=== PATIENT | male | born 1960 | race Caucasian/White ===

== ENCOUNTER → 2016-10-10 | Outpatient (CLI) | payer OTHER, SELFPAY ==
[~2016-10-10] MED LIST: ASPI325T PO; ENAL10TA2 PO; LOPR1TAB7 PO; LOPR50TA PO; PERCOCET PO; [UNRECOGNIZED DRUG - OTHER] PO; enalapril; norco; norvasc
--- NOTE | 2016-10-10 15:33 | REP ---
HISTORY: Disc degeneration. COMPARISON: None. There is mild loss of disc space height and disc hydrational signal at every level. There is no abnormal signal seen in the imaged portion of the spinal cord. The craniovertebral junction is within normal limits. The marrow signal is within normal limits. The facet joints are well aligned bilaterally. At the C2-3 level, there is no abnormality. There is no disc herniation, foraminal narrowing or central canal stenosis. At the C3-4 level, there is a broad-based annular bulge seen in conjunction with degenerative facet and uncovertebral joint changes bilaterally. There is a posterior spondylotic bar. The factors in concert are causing moderate central canal stenosis with near obliteration of the ventral subarachnoid space and flattening and straightening of the anterior surface of the spinal cord. There is no brenden foraminal narrowing or acute disc extrusion. At the C4-5 level, there is a broad-based annular bulge seen in conjunction with a posterior spondylotic bar along with degenerative facet and uncovertebral joint changes bilaterally. The factors in concert are causing moderate central canal stenosis within a flattening and straightening of the anterior surface of the spinal cord and near obliteration of the ventral subarachnoid space. There is evidence of mild bilateral foraminal narrowing. There is no evidence of an acute disc extrusion. At the C5-6 level, there is a broad-based annular bulge seen in conjunction with a posterior spondylotic bar. Degenerative facet and uncovertebral joint changes are present at this level bilaterally and all factors in concert are causing moderate central canal stenosis with near obliteration of the ventral subarachnoid space. Mild left foraminal narrowing is also suspected. There is no evidence of an acute disc extrusion. At the C6-7 level, there is a mild broad-based annular bulge seen in conjunction with degenerative facet and uncovertebral joint changes bilaterally which are mild to moderate and left greater than right. The chronic changes are causing mild left foraminal narrowing. There is no central canal stenosis or disc extrusion. At the C7-T1 level, there is no abnormality. IMPRESSION: Multilevel discogenic changes and spondylosis as described above. Signed by Zak Barker DO 10/10/2016 04:03 P
== END ==
LOC: M RAD 12:32
PROVIDERS: ATTEND Physician Assistant
DX: M50.30 Other cervical disc degeneration, unspecified cervical region (principal)

== ENCOUNTER → 2016-10-26 | Outpatient (REF) | payer OTHER ==
[2016-10-26 11:50] LABS: MEAN CORPUSCULAR HGB CONC 35.7 g/dl (32.0-36.5); MEAN CORPUSCULAR VOLUME 89.6 fl (80.0-96.0); RED CELL DISTRIBUTION WIDTH 11.5 % (11.5-14.5); WHITE BLOOD COUNT 6.5 K/mm3 (4.0-10.0)
[2016-10-26 12:28] LABS: ALBUMIN 4.1 GM/DL (3.2-5.2); ALBUMIN/GLOBULIN RATIO 1.32 (1.00-1.93); ALKALINE PHOSPHATASE 80 U/L (45-117); ALT/SGPT 33 U/L (12-78); ANION GAP 7 MEQ/L (8-16); AST/SGOT 16 U/L (15-37); BILIRUBIN,TOTAL 0.7 MG/DL (0.2-1.0); BLOOD UREA NITROGEN 3 MG/DL (7-18); CALCIUM LEVEL 9.4 MG/DL (8.5-10.1); CARBON DIOXIDE LEVEL 29 MEQ/L (21-32); CHLORIDE LEVEL 98 MEQ/L (98-107); CHOLESTEROL LEVEL 229 MG/DL (<200); CREATININE FOR GFR 0.68 MG/DL (0.70-1.30); GLOMERULAR FILTRATION RATE > 60.0 (>56); GLUCOSE, FASTING 94 MG/DL (70-105); POTASSIUM SERUM 4.5 MEQ/L (3.5-5.1); SODIUM LEVEL 134 MEQ/L (136-145); TOTAL PROTEIN 7.2 GM/DL (6.4-8.2); TRIGLYCERIDES LEVEL 175 MG/DL (<150)
== END ==
LOC: M SFHCCLAY 06:46
PROVIDERS: ATTEND Nurse Practitioner Family
DX: K21.9 Gastro-esophageal reflux disease without esophagitis (principal); I10 Essential (primary) hypertension; E78.4 Other hyperlipidemia; Z11.59 Encounter for screening for other viral diseases

== ENCOUNTER → 2016-10-31 | Outpatient (REF) | payer OTHER ==
[2016-10-31 12:46] LABS: RETIC HEMOGLOBIN CONTENT CHr 34.8 PG (24-36); RETICULOCYTE % 2.5 % (0.5-1.5)
[2016-10-31 13:44] LABS: FOLATE 9.6 NG/ML (>5.4)
[2016-10-31 14:29] LABS: PERCENT SATURATION 19.4 % (19.7-37.4)
== END ==
LOC: M SFHCCLAY 07:09
PROVIDERS: ATTEND Nurse Practitioner Family
DX: K21.9 Gastro-esophageal reflux disease without esophagitis (principal)

== ENCOUNTER 2017-03-07 10:00 | Outpatient (RCR) | payer MEDICAID | END 2017-03-22 | LOC: M OUTALCOH 10:00 | PROVIDERS: ATTEND Psychiatry & Neurology Psychiatry | DX: F10.10 Alcohol abuse, uncomplicated (principal) ==

== ENCOUNTER → 2017-03-13 | Outpatient (REF) | payer OTHER ==
[2017-03-13 13:25] LABS: MEAN CORPUSCULAR HEMOGLOBIN 30.9 pg (27.0-33.0); MEAN CORPUSCULAR HGB CONC 33.4 g/dl (32.0-36.5); MEAN CORPUSCULAR VOLUME 92.6 fl (80.0-96.0); PLATELET COUNT, AUTOMATED 272 10^3/uL (150-450); RED CELL DISTRIBUTION WIDTH 12.2 % (11.5-14.5); WHITE BLOOD COUNT 10.4 10^3/uL (4.0-10.0)
[2017-03-13 13:45] LABS: PERCENT SATURATION 16.1 % (19.7-50.0)
== END ==
LOC: M SFHCCLAY 07:20
PROVIDERS: ATTEND Nurse Practitioner Family
DX: K21.9 Gastro-esophageal reflux disease without esophagitis (principal); E78.4 Other hyperlipidemia; D64.9 Anemia, unspecified

== ENCOUNTER → 2017-06-15 | Outpatient (CLI) | payer MEDICAID | LOC: M OUTALCOH 09:48 | DX: F10.10 Alcohol abuse, uncomplicated (principal) ==

== ENCOUNTER → 2017-06-27 | Outpatient (REF) | payer OTHER | LOC: M SFHCCLAY 07:51 | DX: K21.9 Gastro-esophageal reflux disease without esophagitis (principal); E78.4 Other hyperlipidemia; D64.9 Anemia, unspecified ==

== ENCOUNTER → 2017-06-28 | Outpatient (REF) | payer OTHER ==
[2017-06-28 11:00] LABS: HEMATOCRIT 38.6 % (42.0-52.0); MEAN CORPUSCULAR HGB CONC 33.7 g/dl (32.0-36.5); MEAN CORPUSCULAR VOLUME 88.9 fl (80.0-96.0); PLATELET COUNT, AUTOMATED 244 10^3/uL (150-450); RED BLOOD COUNT 4.34 10^6/uL (4.30-6.10); RED CELL DISTRIBUTION WIDTH 11.9 % (11.5-14.5); RETIC HEMOGLOBIN EQUIVALENT 34.8 pg (24-36); RETICULOCYTE # 43.8 10^9/L (17-77); WHITE BLOOD COUNT 5.3 10^3/uL (4.0-10.0)
[2017-06-28 11:35] LABS: TOTAL 25(OH) VITAMIN D 31.1 NG/ML (30.0-100.0)
[2017-06-28 11:36] LABS: FOLATE 14.9 NG/ML (>5.4); VITAMIN B12 LEVEL 584 PG/ML (247-911)
[2017-06-28 11:41] LABS: CHOLESTEROL LEVEL 229 MG/DL (<200); CHOLESTEROL RISK RATIO 4.017 (<5); FERRITIN 203 NG/ML (26-388); HDL CHOLESTEROL 57 MG/DL (>40); IRON (FE) 80 UG/DL (65-175); LDL CHOLESTEROL 157.4 MG/DL (<100); NON-HDL-C 172 MG/DL; PERCENT SATURATION 25.1 % (19.7-50.0); TOTAL IRON BINDING CAPACITY 319 UG/DL (250-450); TRIGLYCERIDES LEVEL 73 MG/DL (<150)
== END ==
LOC: M SFHCCLAY 06:59
DX: K21.9 Gastro-esophageal reflux disease without esophagitis (principal); E78.4 Other hyperlipidemia; D64.9 Anemia, unspecified
CPT/HCPCS: 82746

== ENCOUNTER → 2018-03-28 | Outpatient (REF) | payer OTHER, MEDICAID ==
[2018-03-28 11:52] LABS: HEMATOCRIT 39.6 % (42.0-52.0); HEMOGLOBIN 13.8 g/dl (13.5-17.5); MEAN CORPUSCULAR HEMOGLOBIN 32.7 pg (27.0-33.0); MEAN CORPUSCULAR HGB CONC 34.8 g/dl (32.0-36.5); MEAN CORPUSCULAR VOLUME 93.8 fl (80.0-96.0); PLATELET COUNT, AUTOMATED 297 10^3/uL (150-450); RED BLOOD COUNT 4.22 10^6/uL (4.30-6.10); RED CELL DISTRIBUTION WIDTH 12.3 % (11.5-14.5); RETIC HEMOGLOBIN EQUIVALENT 35.9 pg (24-36); RETICULOCYTE # 62.5 10^9/L (17-77); RETICULOCYTE % 1.5 % (0.5-1.5); WHITE BLOOD COUNT 7.4 10^3/uL (4.0-10.0)
[2018-03-28 12:04] LABS: ALBUMIN 4.4 GM/DL (3.2-5.2); ALBUMIN/GLOBULIN RATIO 1.47 (1.00-1.93); ALKALINE PHOSPHATASE 82 U/L (45-117); ALT/SGPT 39 U/L (12-78); ANION GAP 9 MEQ/L (8-16); AST/SGOT 32 U/L (7-37); BILIRUBIN,TOTAL 0.4 MG/DL (0.2-1.0); BLOOD UREA NITROGEN 10 MG/DL (7-18); CALCIUM LEVEL 9.1 MG/DL (8.5-10.1); CARBON DIOXIDE LEVEL 28 MEQ/L (21-32); CHLORIDE LEVEL 96 MEQ/L (98-107); CHOLESTEROL LEVEL 241 MG/DL (<200); CHOLESTEROL RISK RATIO 2.869 (<5); CREATININE FOR GFR 0.77 MG/DL (0.70-1.30); FERRITIN 320 NG/ML (26-388); GLOMERULAR FILTRATION RATE > 60.0 (>56); GLUCOSE, FASTING 88 MG/DL (70-100); HDL CHOLESTEROL 84 MG/DL (>40); IRON (FE) 110 UG/DL (65-175); LDL CHOLESTEROL 129 MG/DL (<100); NON-HDL-C 157 MG/DL; PERCENT SATURATION 32.4 % (19.7-50.0); POTASSIUM SERUM 4.3 MEQ/L (3.5-5.1); SODIUM LEVEL 133 MEQ/L (136-145); TOTAL IRON BINDING CAPACITY 340 UG/DL (250-450); TOTAL PROTEIN 7.4 GM/DL (6.4-8.2); TRIGLYCERIDES LEVEL 142 MG/DL (<150)
[2018-03-28 12:09] LABS: FOLATE 15.3 NG/ML (>5.4); VITAMIN B12 LEVEL 692 PG/ML (247-911)
== END ==
LOC: M SFHCCLAY 08:41
DX: K21.9 Gastro-esophageal reflux disease without esophagitis (principal); I10 Essential (primary) hypertension; E78.49 Other hyperlipidemia
CPT/HCPCS: 82746

== ENCOUNTER → 2018-09-20 | Outpatient (REF) | payer MEDICAID ==
[2018-09-20 11:36] LABS: CHOLESTEROL RISK RATIO 2.61 (<5)
== END ==
LOC: M SFHCCLAY 07:07
PROVIDERS: ATTEND Nurse Practitioner Family
DX: E78.49 Other hyperlipidemia (principal)

== ENCOUNTER 2019-07-14 06:30 | Emergency (ER) | payer MEDICAID, OTHER, SELFPAY ==
[~2019-07-14] VITALS: Ht 182.9 cm; Wt 75.0 kg
[2019-07-14] MEDS ORDERED: OXYC-517 (06:47)
[2019-07-14] MEDS ORDERED: NS 1,000 ML IV ONE (07:15)
[2019-07-14 07:32] LABS: BASO # 0.1 10^3/uL (0.0-0.2); EOS # 0.1 10^3/uL (0.0-0.5); HEMOGLOBIN 13.2 g/dl (13.5-17.5); MEAN CORPUSCULAR HEMOGLOBIN 32.4 pg (27.0-33.0); MEAN CORPUSCULAR HGB CONC 33.8 g/dl (32.0-36.5); MEAN CORPUSCULAR VOLUME 95.6 fl (80.0-96.0); MONO % 14.6 % (0.0-5.0); NEUTROPHILS # 3.8 10^3/uL (1.5-8.5); NEUTROPHILS % 53.7 % (36.0-66.0); PLATELET COUNT, AUTOMATED 307 10^3/uL (150-450); RED BLOOD COUNT 4.08 10^6/uL (4.30-6.10)
[2019-07-14 07:58] LABS: ALBUMIN 3.8 GM/DL (3.2-5.2); BILIRUBIN,DIRECT 0.2 MG/DL (0.0-0.2); BILIRUBIN,TOTAL 0.6 MG/DL (0.2-1.0)
[2019-07-14] MEDS ORDERED: PANTOPRAZOLE 40MG INJ (PROTONIX) (C9113) IV ONE (08:00)
[2019-07-14] MEDS ORDERED: ISOVUE-370 76% 100ML VIAL (Q9967) As Ordered ONE (08:07)
--- NOTE | 2019-07-14 08:36 | REP ---
Clinical: Acute right-sided abdominal pain with nausea and vomiting. Technique: Axial contrast enhanced images from the lung bases to the pubic symphysis using 100 ml Isovue 370 intravenous contrast material coronal and sagittal re-formations. Comparison: 04/23/2013. Findings: Lung bases are clear. Visualized heart and pericardium normal. Liver, spleen, pancreas, gallbladder, bilateral adrenal glands are normal. The right kidney is essentially normal and demonstrates minimal cortical scarring and small subcentimeter cyst. Evidence of prior left nephrectomy noted. The enteric system is without obstruction or acute inflammatory process. Pelvis demonstrates normal bladder and age appropriate prostate/seminal vesicles. No ascites. No free air. No adenopathy. Atherosclerotic changes to the aorta and vasculature without aneurysm or dissection. Musculoskeletal structures demonstrate age-related degenerative changes without focal acute abnormality. Impression: 1. No acute abdominopelvic pathology appreciated. Electronically Signed by Juan Aguirre MD 07/14/2019 08:27 A
[2019-07-14] MEDS ORDERED: SUCRALFATE SUSP 1GM/10ML UD PO ONE (08:45)
[2019-07-14] MEDS ORDERED: CARA1TAB6 PO (09:04)
[2019-07-14] MEDS ORDERED: PANT40TA3 PO (09:04)
[2019-07-14 09:13] VITALS: BP 144/100
[2019-07-14] MEDS ORDERED: ONDA4TAB6 PO (10:58)
== END 2019-07-14 09:18 | disposition home or self-care (01) ==
LOC: M ED 06:30
DX: K29.00 Acute gastritis without bleeding (principal); I10 Essential (primary) hypertension; Z79.899 Other long term (current) drug therapy
CPT/HCPCS: 36415; 74177; 80047; 80076; 82150; 83690; 85025; 96360; 99284; Q9967

== ENCOUNTER → 2019-08-07 | Outpatient (CLI) | payer OTHER ==
[~2019-08-07] MED LIST changes: +CARA1TAB6 PO; +ONDA4TAB6 PO; +OXYC-517; +PANT40TA3 PO
--- NOTE | 2019-08-07 11:55 | REP ---
HIDA SCAN: Following the intravenous administration of 6.6 millicuries technetium 99m mebrofenin, multiple images of the right upper quadrant are performed every 5 minutes for a period of 1 hour. Biliary to bowel transit is seen at 35 minutes post injection. The gallbladder is not visualized until 60 minutes post injection. During the exam, the patient informed the technologist that he took oxycodone at 5 a.m. which would interfere with calculation of a gallbladder ejection fraction. Therefore, the gallbladder ejection fraction is not performed today. 3-hour delayed images are performed showing adequate filling of the gallbladder and no evidence of cholecystitis. We will be happy to reschedule the patient for appropriate imaging and gallbladder ejection fraction calculation, at which time the patient should refrain from taking oxycodone. Electronically Signed by Alban Degroot MD 08/07/2019 02:33 P
== END ==
LOC: M RAD 07:27
PROVIDERS: ATTEND Nurse Practitioner Family
DX: R10.11 Right upper quadrant pain (principal)
CPT/HCPCS: 78227; A9537

== ENCOUNTER 2019-09-13 18:29 | Observation (INO) | payer MEDICAID, OTHER ==
[~2019-09-13] VITALS: Ht 182.9 cm; Wt 71.4 kg
[~2019-09-13 18:29] MED LIST changes: -OXYC-517; +OXYC-517 PO
[2019-09-13 19:21] LABS: BASO % 0.3 % (0.0-1.0); LYMPH # 0.7 10^3/uL (1.5-5.0); LYMPH % 7.5 % (24.0-44.0); MEAN CORPUSCULAR HEMOGLOBIN 32.9 pg (27.0-33.0); MEAN CORPUSCULAR HGB CONC 35.6 g/dl (32.0-36.5); MEAN CORPUSCULAR VOLUME 92.4 fl (80.0-96.0); MONO # 0.4 10^3/uL (0.0-0.8); MONO % 4.8 % (0.0-5.0); NEUTROPHILS # 7.9 10^3/uL (1.5-8.5); NEUTROPHILS % 86.8 % (36.0-66.0); PLATELET COUNT, AUTOMATED 294 10^3/uL (150-450); RED BLOOD COUNT 4.87 10^6/uL (4.30-6.10); WHITE BLOOD COUNT 9.1 10^3/uL (4.0-10.0)
[2019-09-13] MEDS ORDERED: NS 1,000 ML IV ONE (19:30)
[2019-09-13] MEDS ORDERED: ONDANSETRON 4MG/2ML VIAL IV ONE (19:30)
[2019-09-13] MEDS ORDERED: MORPHINE 2 MG/ML 1ML VIAL (J2270) IV PRN (19:30)
[2019-09-13 19:37] LABS: ALBUMIN 4.9 GM/DL (3.2-5.2); BILIRUBIN,DIRECT 0.4 MG/DL (0.0-0.2); BILIRUBIN,TOTAL 1.1 MG/DL (0.2-1.0); TOTAL PROTEIN 8.7 GM/DL (6.4-8.2)
[2019-09-13 19:41] LABS: INR 0.99; PARTIAL THROMBOPLASTIN TIME 26.8 SECONDS (25.0-38.4); PROTHROMBIN TIME 12.8 SECONDS (11.8-14.0)
[2019-09-13] MEDS: HYDROMORPHONE HCL 0.5 MG/ 0.5 ML SYRINGE (J1170 PER 1) IV PRN ×2 (20:18→20:58)
[2019-09-13] MEDS ORDERED: ISOVUE-370 76% 100ML VIAL As Ordered ONE (20:42)
--- NOTE | 2019-09-13 21:36 | REPVR ---
PROCEDURE INFORMATION: Exam: CT Abdomen And Pelvis With Contrast Exam date and time: 09/13/2019 9:08 PM Age: 58 years old Clinical indication: Ruq abd pain, vomiting, diarrhea TECHNIQUE: Imaging protocol: Computed tomography of the abdomen and pelvis with intravenous contrast. Radiation optimization: All CT scans at this facility use at least one of these dose optimization techniques: automated exposure control; mA and/or kV adjustment per patient size (includes targeted exams where dose is matched to clinical indication); or iterative reconstruction. Contrast material: ISOVUE 370; Contrast volume: 100 ml; Contrast route: IV; COMPARISON: CT ABD/PEL W/IV CONTRAST ONLY 07/14/2019 8:13 AM FINDINGS: Heart: No cardiomegaly or pericardial effusion. Lungs: The imaged portions of the lung bases are clear. The lungs were not fully imaged. Diaphragm: Intact. Liver: The attenuation of the liver is more than 40 Hounsfield units lower in attenuation compared to the spleen, which is compatible with fatty liver infiltration. No liver lesion is seen. The contour of the liver is smooth. No hepatomegaly is noted. Gallbladder and bile ducts: No calcified gallstones are noted. No gallbladder wall thickening, pericholecystic fluid, or pericholecystic inflammatory changes are identified. No dilation of the bile ducts is noted. No calcified stones are seen in the common bile duct. Pancreas: Normal. No dilation of the main pancreatic duct is noted. There is no inflammatory fat stranding around the pancreas to suggest acute pancreatitis. Spleen: Normal. No splenomegaly is noted. Adrenals: Normal. No adrenal mass is noted. Kidneys and ureters: Postoperative changes are noted from a left nephrectomy, and there are surgical clips in the operative bed. There is a 6 mm benign-appearing cyst in the midpole of right kidney that is stable compared to the prior CT abdomen and pelvis on 07/14/2019 and for which follow-up is not necessary. There is right renal cortical scarring. No stones are noted in the right kidney or right ureter. Stomach and bowel: The stomach and small bowel are unremarkable. There is colonic diverticulosis without evidence for diverticulitis. There is no evidence for a bowel obstruction, colitis, pneumatosis intestinalis, intussusception, volvulus, or perforated viscus. Appendix: Normal. There is no evidence for appendicitis. Intraperitoneal space: No free air. There is a trace amount of free fluid in the pelvis. No abscess. Retroperitoneal space: There is a trace amount of fluid in the left retroperitoneal space. No retroperitoneal mass is noted. Vasculature: The abdominal aorta is patent, normal in caliber, and there is no dissection. The iliac arteries, common femoral arteries, right main renal artery, celiac artery, superior mesenteric artery, and inferior mesenteric artery are patent. There are moderate atherosclerotic calcifications. The portal veins, splenic vein, superior mesenteric vein, inferior mesenteric vein, and right renal vein are patent. Lymph nodes: No enlarged lymph nodes. Bladder: The partially distended urinary bladder is unremarkable. No stones or masses are seen in the bladder. Reproductive: The prostate gland and seminal vesicles are unremarkable. Bones/joints: There is no fracture or dislocation. No suspicious osteolytic or osteoblastic lesion. There are degenerative changes involving the lumbar spine. There is mild osteoarthritis of both hip joints. There are bony protruberances in the lateral aspects of the femoral head neck junctions, which increase the anatomic risk for a CAM type femoroacetabular impingement syndrome in both hips. There are degenerative changes of both sacroiliac joints. Soft tissues: There is a small fat containing umbilical hernia, which is similar in appearance compared to the prior CT on 07/14/2019. IMPRESSION: 1. No acute findings in the abdomen or pelvis. 2. Fatty liver. 3. Small fat containing umbilical hernia, which is similar in appearance compared to the prior CT on 07/14/2019. 4. Colonic diverticulosis without evidence for diverticulitis. 5. Trace amount of free fluid in the pelvis and left retroperitoneal space. Electronically signed by: Ac Saenz On 09/13/2019 21:36:44 PM
[2019-09-13] MEDS ORDERED: PANTOPRAZOLE 40MG VIAL (C9113 PER 1) IV ONE (22:45)
[2019-09-13] MEDS ORDERED: ENAL20TA PO (22:53)
[2019-09-13] MEDS ORDERED: OMEP-221 PO (22:53)
--- NOTE | 2019-09-13 23:13 | HPEPDOC ---
[facility] Medical History & Physical Date of Admission September 13, 2019 Date of Service: September 13, 2019 Primary Care Physician: Sydnie Castro Attending Physician: Abbie Bustos MD History and Physical CHIEF COMPLAINT: abdominal pain, vomiting HISTORY OF PRESENT ILLNESS: Patient is a 58 y/o M with PMH of chronic abdominal pain, gastritis, duodenitis hx who presented to [facility] emergency room with the chief complaint of worsening right upper quadrant pain and intractable vomiting for the past 3 days. Patient states that he has always had significant RUQ pain which began 3 months ago. On 09/11/19, he had an episode of severe RUQ pain, he had loss of his bowel, nausea, at times "coffee ground" appearing vomiting >15 x today. Diarrhea is often yellow, bile color but he has had brbpr and at times it is dark colored. Describes pain like "knot" or "stabbing" pain in his right upper quadrant, 10/10 on pain scale, localized , its constant but can intermittently become more severe. Follows closely with Dr. Vega for the pain and was told recently that he would likely need another endoscope and has a scheduled HIDA scan within the next 2 weeks. Associated symptoms include lack of energy, loss of appetite, feeling feverish, headaches. In ER, VS were stable. Patient was given multiple doses of dilaudid for severe pain. BP was uncontrolled in 170's systolic. He would have diaphoresis with each pain attack in the RUQ. CT abdomen showed: no acute findings in the abdomen or pelvis, fatty liver, small fat containing umbilical hernia similar in appearance compared to the prior CT on 07/14/2019, colonic diverticulosis without evidence for diverticulitis, trace amount of free fluid in the pelvis and left retroperitoneal space. When looked into old records, Endoscopy from 2014 did not show any concerning findings. Patient continued to have vomiting, requiring zofr an. Patient was admitted for continued workup/treament of RUQ pain, intractable vomiting. REVIEW OF SYSTEMS: CONSTITUTIONAL: Denies unexplained weight gain, night sweats EYES: Denies eye drainage, eye pain, visual changes, dry/irritated eye EARS, NOSE, MOUTH, THROAT: Denies difficulty hearing, ringing in ears, mouth sores, loose teeth, sore throat, facial numbness or pain NECK: Denies swollen glands CARDIOVASCULAR: Denies irregular heartbeat, racing heart, chest pains, swelling of feet or legs, pain in legs with walking RESPIRATORY: Denies shortness of breath, night sweats, wheezing, sputum production, oxygen at home, cough lasting > 1 month GASTROINTESTINAL: Denies constipation, heartburn, nausea GENITOURINARY: Denies painful urination, bloody urine, frequent urination, urgency, leaking urine, impotence MUSCULOSKELETAL: Denies joint pain, muscle pain, leg swelling INTEGUMENTARY: Denies rash, itching, new skin lesion, change in existing skin lesion, hair loss or increase, breast changes. NEUROLOGICAL: Denies dizziness, difficulty walking, numbness or tingling PSYCHIATRIC: Denies depression, anxiety, recurrent bad thoughts, mood swings, hallucinations PAST MEDICAL HISTORY: 1. HTN 2. GERD 3. Duodenitis 4. Gastritis 5. Arthritis 6. 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 Single kidney 8. Chronic pain 2/2 to entrapment syndrome and advanced arthritis PAST SURGICAL HISTORY: 1. Endoscopy 2013 2. 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 Colonoscopy 2013 5. Herniated/strangulation repair as child FAMILY HISTORY: Father: colon cancer. at 81 y/o Mother: stroke. at 81 y/o. Siblings: sister #1: GI problems. Alive, sister #2: stroke, GI problems. Alive SOCIAL HISTORY: Denies smoking and drug use. Occasional alcohol use. Lives in local area, he is currently employed in construction. GI-Dr. Vega, PCP-Sydnie Castro. Full Code. ALLERGIES: Please see below. HOME MEDICATIONS: Please see below. PHYSICAL EXAMINATION: CONSTITUTIONAL: Appears very uncomfortable, AAO x 3 EYES: PERRLA, EOM intact, corrective lenses in place HENT, MOUTH: Normocephalic, atraumatic, moist mucous membranes, NECK: SUPPLE, no JVD, no lymphadenopathy, no carotid bruit CV: Regular rate and rhythm, S1S2 normal, no murmurs/rubs/gallops RESPIRATORY: Clear to auscultation bilaterally, no rales/rhonchi/wheezes GI: Multiple well healed scars on left upper and lower quadrants. BS positive in 4 quadrants, soft, very tender to touch in the RUQ and LLQ. + guarding of these areas. Nondistended, no rebound no organomegaly : Deferred MUSCULOSKELETAL: Normal ROM. No cyanosis, clubbing, swelling, joint deformity, extremity edema INTEGUMENTARY: Intact, no rashes, no lesions, no erythema NEUROLOGIC: Cranial Nerves II-XII are intact, no focal deficits PSYCHIATRIC: Mood and affect are normal LABORATORY DATA: Please see below IMAGING: CT abd/pelvis: 1. No acute findings in the abdomen or pelvis. 2. Fatty liver. 3. Small fat containing umbilical hernia, which is similar in appearance compared to the prior CT on 07/14/2019. 4. Colonic diverticulosis without evidence for diverticulitis. 5. Trace amount of free fluid in the pelvis and left retroperitoneal space. ASSESSMENT: 58 y/o M admitted for continued treatment/workup of severe abdominal pain, intractable pain. PLAN: 1. Right upper quadrant pain, r/o gallbladder source vs. possibly ulcer? CT with contrast of abd/pelvis above. T bili, D bili and AST only very minimally elevated. HIDA scans are not done on the weekend otherwise would suggest this first- although on high doses of narcotics, would maybe not be able to done anyway. Consider surgical consult for scope to r/o ulcer if pain still present in the AM. Pain control with home PO oxycodone and morphine IV for severe pain, IVFs at 100 cc/hr. F/u CMP in AM. 2. Hematemesis/brbpr at home. ? GI bleed. If ulcer, as mentioned above, could be intermittently bleeding. No witnessed bleeding here, H/H stable, guaiac neg in ER. Clear liquid diet, f/u CBC in AM. Protonix IV. 3. Intractable vomiting likely 2/2 to problem #1. Zofran PRN. 4. Chronic pain 2/2 to entrapment syndrome and advanced arthritis. C/w home oxycodone. 5. HTN. C/w home meds. 6. GERD. PPI. 7. Solitary kidney. Cr wnl. On IVFs. 8. DVT px. SCDs, TEDs DISPOSITION: Admitted under observation status. Plan is discharge home when medically improved. Vital Signs Vital Signs Date Time Temp Pulse Resp B/P (MAP) Pulse Ox O2 Delivery O2 Flow Rate FiO2 09/13/19 22:45 81 156/99 (118) 97 Room Air 09/13/19 20:58 18 09/13/19 18:30 99.0 Laboratory Data Labs 24H Laboratory Tests 2 09/13/19 19:01: Prothrombin Time 12.8, Prothromb Time International Ratio 0.99, Activated Partial Thromboplast Time 26.8 09/13/19 19:02: Immature Granulocyte % (Auto) 0.6, Neutrophils (%) (Auto) 86.8H, Lymphocytes (%) (Auto) 7.5L, Monocytes (%) (Auto) 4.8, Eosinophils (%) (Auto) 0.0, Basophils (%) (Auto) 0.3, Neutrophils # (Auto) 7.9, Lymphocytes # (Auto) 0.7L, Monocytes # (Auto) 0.4, Eosinophils # (Auto) 0.0, Basophils # (Auto) 0.0, Nucleated Red Blood Cells % (auto) 0.0, Total Bilirubin 1.1H, Direct Bilirubin 0.4H, Aspartate Amino Transf (AST/SGOT) 68H, Alanine Aminotransferase (ALT/SGPT) 51, Alkaline Phosphatase 131H, Total Protein 8.7H, Albumin 4.9, Albumin/Globulin Ratio 1.3, Lipase 220 09/13/19 19:03: POC Glucose (Misc Panel) 118H, POC Sodium (Misc Panel) 134L, POC Potassium (Misc Panel) 3.6, POC Chloride (Misc Panel) 97L, POC Total CO2 (Misc Panel) 20.0L, POC Blood Urea Nitrogen (Misc Panel 3L, POC Ionized Calcium (Misc Panel) 4.5, POC Creatinine (Misc Panel) 0.8, POC Hematocrit (Misc Panel) 49.0 09/13/19 20:11: Lactic Acid Level 1.9 CBC/BMP Laboratory Tests 09/13/19 19:02 Home Medications Scheduled Enalapril Maleate (Enalapril Maleate) 20 Mg Tablet, 20 MG PO BID Metoprolol Tartrate (Lopressor) 100 Mg Tab, 100 MG PO TID Omeprazole (Omeprazole) 40 Mg Capsule.dr, 40 MG PO DAILY Scheduled PRN Oxycodone HCl (Oxycodone HCl) 5 Mg Tablet, 5 MG PO Q4-6HP PRN for PAIN Allergies Coded Allergies: No Known Drug Allergies (Verified Allergy, Unknown, 07/14/19) A-FIB/CHADSVASC A-FIB History Current/History of A-Fib/PAF?: No Current PO Anticoag Therapy: No (possible bleed) Age/Risk Factor Scoring CHADSVASC: CHADSVASC Response (Comments) Value Age Risk Factor Age < 65 years old 0 Gender Risk Factor Male 0 Hx of CHF No 0 Hx of HTN Yes 1 Hx of Stroke/TIA/or VTE No 0 Hx of Diabetes No 0 Hx of Vascular Disease No 0 Total 1 Treatment Treatment ordered: NONE Reason Anticoagulant not given: Current bleeding, Other (possible bleeding ) Other reason anticoagulant not: questionalb GI bleed Abbie Bustos MD September 13, 2019 23:13
[2019-09-13] MEDS ORDERED: ONDANSETRON 4MG/2ML VIAL IV PRN (23:15)
[2019-09-14] MEDS ORDERED: MORPHINE 2 MG/ML 1ML VIAL (J2270) IV PRN
[2019-09-14 01:02] VITALS: BP 160/100
[2019-09-14] MEDS: ENALAPRIL MALEATE 10 MG TAB PO SCH ×3 (01:42→21:06)
[2019-09-14] MEDS: METOPROLOL TARTRATE 100 MG TAB PO SCH ×4 (01:43→21:07)
[2019-09-14] MEDS: oxyCODONE 5MG TAB PO PRN ×4 (02:13→21:07)
[2019-09-14 03:15] VITALS: BP 152/88
[2019-09-14] MEDS ORDERED: MORPHINE 2 MG/ML 1ML VIAL (J2270) IV ONE (03:30)
[2019-09-14] MEDS: NS 1,000 ML IV SCH ×2 (03:50→16:49)
[2019-09-14 06:00] VITALS: BP 170/98
--- NOTE | 2019-09-14 08:11 | ECGEPIP ---
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
[2019-09-14] MEDS ORDERED: HYDROMORPHONE HCL 0.5 MG/ 0.5 ML SYRINGE (J1170 PER 1) IV PRN (08:45)
[2019-09-14] MEDS ORDERED: OMEPRAZOLE 20 MG CAP PO SCH (09:00)
[2019-09-14] MEDS: GABAPENTIN 100 MG CAP PO SCH ×3 (10:20→21:06)
[2019-09-14] MEDS: ONDANSETRON 4MG/2ML VIAL IV SCH ×3 (10:21→21:07)
[2019-09-14] MEDS: KETOROLAC 30 MG/ML 1ML VIAL IV SCH ×3 (10:21→21:05)
[2019-09-14] MEDS: HYDROMORPHONE HCL 0.5 MG/ 0.5 ML SYRINGE (J1170 PER 1) IV PRN ×4 (10:22→22:20)
--- NOTE | 2019-09-14 11:19 | IPNPDOC ---
Text Note Date of Service The patient was seen on 09/14/19. NOTE SUBJECTIVE: Complains of pain right under the edge of the rib in the right upper quadrant. Bp uncontrolled form the pain. Still having dry heaves, no bowel movement. No fever or chills. PHYSICAL EXAMINATION: VITALS ; below CONSTITUTIONAL: Appears very uncomfortable, AAO x 3 EYES: PERRLA, EOM intact, corrective lenses in place HENT, MOUTH: Normocephalic, atraumatic, moist mucous membranes, NECK: SUPPLE, no JVD, no lymphadenopathy, no carotid bruit CV: Regular rate and rhythm, S1S2 normal, no murmurs/rubs/gallops RESPIRATORY: Clear to auscultation bilaterally, no rales/rhonchi/wheezes GI: Multiple well healed scars on left upper and lower quadrants. BS positive in 4 quadrants, soft, tender in the RUQ , Nondistended, no rebound no organomegaly MUSCULOSKELETAL: Normal ROM. No cyanosis, clubbing, swelling, joint deformity, extremity edema INTEGUMENTARY: Intact, no rashes, no lesions, no erythema NEUROLOGIC: Cranial Nerves II-XII are intact, no focal deficits PSYCHIATRIC: Mood and affect are normal LABORATORY DATA: Reviewed. ASSESSMENT AND PLAN: Patient is a 58 y/o M with PMH of HTN, OA of the cervical region and hips, chronic abdominal pain in the left lumber region from nerve entrapment syndrome on chronic narcotics, gastritis, duodenitis, present with right upper quadrant abdominal pain, gastritis, duodenitis hx who presented to [facility] emergency room with the chief complaint of worsening right upper quadrant pain for the past 3 months became intractable 3 days ago with and intractable vomiting and dry heaves for the past 3 days. He has been unable to keep any food or liquid down. has been able to keep his oral narcotics down also. He was admitted for evaluation of abdominal pain and hypertensive urgency. Abdominal pain RUQ and vomiting CT abdomen no acute issues. Gastritis/duodenitis/GB issues/ musculoskelotal. will get GB US Had HIDA scan on 08/06 incomplete as he was taking narcotics. will give toradol, dilaudid, zofran Surgical consult. continue pantoprazole. Hematemesis/brbpr at home. ? hemorrhoidal/ acute gastritis/duodenitis No bowel movements here, no bleeding here hh stable continue Pantoprazole. Chronic pain 2/2 to entrapment syndrome and advanced arthritis. C/w home oxycodone. Hypertensive urgency due to pain C/w home meds. GERD. PPI. Solitary kidney. due to left nephrectomy. DVT px. SCDs, TEDs VS,Fishbone, I+O VS, Fishbone, I+O Laboratory Tests 09/13/19 19:02 Vital Signs Date Time Temp Pulse Resp B/P (MAP) Pulse Ox O2 Delivery O2 Flow Rate FiO2 09/14/19 10:22 18 09/14/19 08:39 87 204/134 09/14/19 06:00 99.1 96 Room Air I&O- Last 24 Hours up to 6 AM 09/14/19 06:00 Intake Total 1460 ml Balance 1460 ml STEPHANIE GALVAN MD September 14, 2019 11:19
[2019-09-14 14:00] VITALS: BP 160/110
[2019-09-14] MEDS: SUCRALFATE SUSP 1GM/10ML UD PO SCH ×2 (17:10→21:04)
[2019-09-14] MEDS: PANTOPRAZOLE 40MG VIAL (C9113 PER 1) IV SCH (17:10)
[2019-09-14] MEDS ORDERED: traZODone 25MG PER 1/2 TABLET PO PRN (18:30)
[2019-09-14] MEDS: D5W/0.9% SODIUM CHLORIDE 1,000 ML IV SCH (18:39)
[2019-09-14] MEDS ORDERED: PANTOPRAZOLE 40MG VIAL (C9113 PER 1) IV SCH (21:00)
[2019-09-14 22:00] VITALS: BP 164/52
[2019-09-15] MEDS: ONDANSETRON 4MG/2ML VIAL IV SCH ×3 (03:32→15:00)
[2019-09-15] MEDS: KETOROLAC 30 MG/ML 1ML VIAL IV SCH ×3 (03:32→15:00)
[2019-09-15] MEDS: HYDROMORPHONE HCL 0.5 MG/ 0.5 ML SYRINGE (J1170 PER 1) IV PRN ×2 (03:35→06:39)
[2019-09-15] MEDS: D5W/0.9% SODIUM CHLORIDE 1,000 ML IV SCH ×2 (03:35→14:30)
[2019-09-15 06:00] VITALS: BP 168/90
[2019-09-15] MEDS: PANTOPRAZOLE 40MG VIAL (C9113 PER 1) IV SCH (06:02)
[2019-09-15] MEDS: oxyCODONE 5MG TAB PO PRN ×2 (06:02→10:08)
[2019-09-15] MEDS: ENALAPRIL MALEATE 10 MG TAB PO SCH (06:16)
[2019-09-15] MEDS: METOPROLOL TARTRATE 100 MG TAB PO SCH (06:17)
[2019-09-15 06:44] LABS: HEMATOCRIT 38.7 % (42.0-52.0); MEAN CORPUSCULAR HEMOGLOBIN 33.7 pg (27.0-33.0); MEAN CORPUSCULAR HGB CONC 35.4 g/dl (32.0-36.5); MEAN CORPUSCULAR VOLUME 95.1 fl (80.0-96.0); PLATELET COUNT, AUTOMATED 190 10^3/uL (150-450); RED BLOOD COUNT 4.07 10^6/uL (4.30-6.10); WHITE BLOOD COUNT 7.3 10^3/uL (4.0-10.0)
[2019-09-15 06:52] LABS: HEMOGLOBIN 13.7 g/dl (13.5-17.5)
[2019-09-15 07:18] LABS: ALBUMIN 3.5 GM/DL (3.2-5.2); ALT/SGPT 37 U/L (12-78); BILIRUBIN,TOTAL 1.1 MG/DL (0.2-1.0); BLOOD UREA NITROGEN 4 MG/DL (7-18); CALCIUM LEVEL 8.5 MG/DL (8.5-10.1); CARBON DIOXIDE LEVEL 27 MEQ/L (21-32); CHLORIDE LEVEL 102 MEQ/L (98-107); GLOMERULAR FILTRATION RATE > 60.0 (>56); GLUCOSE, FASTING 111 MG/DL (70-100); POTASSIUM SERUM 3.4 MEQ/L (3.5-5.1); SODIUM LEVEL 138 MEQ/L (136-145); TOTAL PROTEIN 6.3 GM/DL (6.4-8.2)
[2019-09-15] MEDS: SUCRALFATE SUSP 1GM/10ML UD PO SCH ×2 (07:30→12:41)
[2019-09-15] MEDS: GABAPENTIN 100 MG CAP PO SCH (09:36)
[2019-09-15] MEDS: **hydrALAZINE HCL** 25 MG TAB PO SCH ×2 (09:37→12:42)
[2019-09-15] MEDS ORDERED: OXYC-517 PO (12:12)
[2019-09-15] MEDS ORDERED: HYDR25TA PO (12:12)
[2019-09-15] MEDS ORDERED: GABA-843 PO (12:12)
[2019-09-15 12:42] VITALS: BP 152/98
--- NOTE | 2019-09-15 13:17 | CR ---
DATE OF CONSULTATION: 09/15/2019 CHIEF COMPLAINT: Abdominal pain. BRIEF HISTORY OF PRESENT ILLNESS: The patient is a 58-year-old male whom I have seen in the past for abdominal pains, and when he has seen me, I have referred him on to the pain clinic for some chronic pain issues as well as felt that the majority of his abdominal pains were not surgical issues. In any case, has sharp, persistent, stabbing pain underneath the rib on the right-hand side that is persistent pain. He thinks that it radiates to his left lower quadrant or at least starts up the pain in his lower quadrant. Pain medications do not seem to make this completely go away. It only dulls it, as well as the other medications he is currently on. He states it is there at all times, does not come or go, does not getting worse with eating, etc. Does not have any history of biliary colic. He has had this chronic abdominal pain, gastritis, duodenitis, diarrhea, issues, irritable bowel-type symptoms that have been followed by gastrointestinal (GI). I do feel that it is reasonable to have GI re-evaluate him at some point as an outpatient, although I do not feel that this right-sided abdominal pain is related to this. In any case, he is in the hospital for pain control. Thus far, his past medical history is significant for history of hypertension, gastroesophageal reflux disease, duodenitis, gastritis, arthritis, nerve entrapment, single kidney, chronic pain, endoscopies, left nephrectomy, sinus surgery, hernia repair. MEDICATIONS: Include the following: Enalapril, metoprolol, omeprazole, and oxycodone. Other medications have been added to his regimen. PHYSICAL EXAMINATION: Patient is an anxious 58-year-old who looks stated age. HEENT is unremarkable. Lungs are clear anteriorly. Heart is regular. Abdomen is soft, nondistended, really not tender, although when I push on his right rib edge and underneath the rib edge, he has some tenderness. This could be easily costochondritis. No true abdominal pain or tenderness is appreciated. Thus far, with his workup he has had a normal white count. His CT scan showed no evidence of right upper quadrant abnormality other than a fatty liver, and his gallbladder ultrasound results are still pending at this time; however, I did not see any evidence of gallbladder wall thickening or gallstones. IMPRESSION AND PLAN: The patient has pain of undetermined etiology. I anticipate it is mostly musculoskeletal, and he has seen the pain clinic in the past. It may be reasonable to be re-evaluated by them for additional recommendations. No surgical intervention is necessary at this time. The question whether a hepatobiliary iminodiacetic acid (HIDA) scan would be helpful to rule out cholecystitis is obvious at this point that there is no evidence of acute cholecystitis, and thus HIDA scan would not be beneficial in this. Obviously, if the patient has some chronic cholecystitis, I feel that the discomfort and pain that he has is very unlikely to be related to a chronic cholecystitis presentation; thus I would recommend addressing the problem that is present, which is a pain control issue. Once he is comfortable enough to be discharged, I would recommend that he be evaluated by pain clinic as an outpatient and followup with them. No surgical followup is necessary at this time.
--- NOTE | 2019-09-15 13:39 | DS.PDOC ---
Discharge Summary General Date of Admission September 13, 2019 at 18:30 Date of Discharge 09/15/19 Discharge Summary PROCEDURES PERFORMED DURING STAY: [None]. DISCHARGE DIAGNOSES: Musculoskeletal pain Vs Nerve entrapment pain Hypertensive urgency GERD OA Left nephrectomy Nerve entrapment at left nephrectomy site with chronic pain. COMPLICATIONS/CHIEF COMPLAINT: Abdominal Pain. 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 He has been unable to keep any food or liquid down. has been able to keep his oral narcotics down also. He was admitted for evaluation of abdominal pain and hypertensive urgency. Abdominal pain RUQ and vomiting and diarrhea No vomiting or diarrhea here. CT abdomen no acute issues. GB us negative No acute cholecystitis. Patient has been scheduled for outpatient HIDA scan which can be completed However i doubt this is pain related to intraabdominal pathology. Probably musculoskeletal vs nerve entrapment Patient has history of multiple rib fractures at the age of 17 years. Diarrhea probably due to narcotic withdrawal as he could not keep his oxycodone down for 2 days due to vomiting. Appreciate surgical consult. Added Gabapentin continue home oxycodone. referral to pain clinic Hematemesis/brbpr at home. probably due to retching and hemorrhoids. No bowel movements here, no bleeding here hh stable continue Pantoprazole. Chronic pain 2/2 to entrapment syndrome and advanced arthritis. C/w home oxycodone. Hypertensive urgency due to pain C/w home meds. add hydralazine. GERD. PPI. Solitary kidney. due to left nephrectomy. DISCHARGE MEDICATIONS: Please see below. ALLERGIES: Please see below. PHYSICAL EXAMINATION ON DISCHARGE: VITAL SIGNS: Please see below. CONSTITUTIONAL: Appears very uncomfortable, AAO x 3 EYES: PERRLA, EOM intact, corrective lenses in place HENT, MOUTH: Normocephalic, atraumatic, moist mucous membranes, NECK: SUPPLE, no JVD, no lymphadenopathy, no carotid bruit CV: Regular rate and rhythm, S1S2 normal, no murmurs/rubs/gallops RESPIRATORY: Clear to auscultation bilaterally, no rales/rhonchi/wheezes GI: Multiple well healed scars on left upper and lower quadrants. BS positive in 4 quadrants, soft, tender in the RUQ , Nondistended, no rebound no organomegaly MUSCULOSKELETAL: Normal ROM. No cyanosis, clubbing, swelling, joint deformity, extremity edema INTEGUMENTARY: Intact, no rashes, no lesions, no erythema NEUROLOGIC: Cranial Nerves II-XII are intact, no focal deficits PSYCHIATRIC: Mood and affect are normal LABORATORY DATA: Please see below. ACTIVITY: [As tolerated]. DIET: as tolerated DISCHARGE PLAN: Home DISPOSITION: . DISCHARGE INSTRUCTIONS: Referral to Pain clinic Follow up with PMD in 1 week DISCHARGE CONDITION: [Stable]. TIME SPENT ON DISCHARGE: 35 minutes. Vital Signs/I&Os Vital Signs Date Time Temp Pulse Resp B/P (MAP) Pulse Ox O2 Delivery O2 Flow Rate FiO2 09/15/19 12:53 14 09/15/19 12:42 152/98 09/15/19 10:38 Room Air 09/15/19 06:17 66 09/15/19 06:00 99.0 98 I&O- Last 24 Hours up to 6 AM 09/15/19 06:00 Intake Total 2615 ml Output Total 350 ml Balance 2265 ml Laboratory Data Labs 24H Laboratory Tests 2 09/15/19 06:28: Nucleated Red Blood Cells % (auto) 0.0, Anion Gap 9, Glomerular Filtration Rate > 60.0, Calcium Level 8.5, Total Bilirubin 1.1H, Aspartate Amino Transf (AST/SGOT) 41H, Alanine Aminotransferase (ALT/SGPT) 37, Alkaline Phosphatase 89, Total Protein 6.3#L, Albumin 3.5#, Albumin/Globulin Ratio 1.3 CBC/BMP Laboratory Tests 09/15/19 06:28 Discharge Medications Scheduled Enalapril Maleate (Enalapril Maleate) 20 Mg Tablet, 20 MG PO BID, (Reported) Gabapentin (Gabapentin) 300 Mg Capsule, 1 CAP PO TID Hydralazine HCl (Hydralazine HCl) 25 Mg Tablet, 1 TAB PO TID Metoprolol Tartrate (Lopressor) 100 Mg Tab, 100 MG PO TID, (Reported) Omeprazole (Omeprazole) 40 Mg Capsule., 40 MG PO DAILY, (Reported) Scheduled PRN Oxycodone HCl (Oxycodone HCl) 5 Mg Tablet, 5 MG PO Q4-6HP PRN for PAIN Allergies Coded Allergies: No Known Drug Allergies (Verified Allergy, Unknown, 07/14/19) STEPHANIE GALVAN MD September 15, 2019 13:39
--- NOTE | 2019-09-16 08:39 | REP ---
Right upper quadrant sonography: History: Upper quadrant pain. Preliminary report is provided at the time of the exam by Dr. Aguirre. Comparison study: Comparison study is from October 05, 2015. [place] CT abdomen study April 21, 2013. The patient status post left nephrectomy. Findings: Scanning through the right upper quadrant of the abdomen demonstrates a normal sized, thin-walled gallbladder without evidence of stone or polyp. Common bile duct is normal measuring 0.6 cm in greatest diameter. No focal liver lesion is seen. Liver size is normal. No pancreatic abnormality is observed. No right renal abnormality is seen. There is no evidence of ascites. The right kidney measures 13.3 x 5.3 x 5.3 cm. Impression: Negative right upper quadrant sonography. Electronically Signed by Sonny Mohan MD 09/16/2019 08:31 A
== END 2019-09-15 15:41 | disposition home or self-care (01) ==
LOC: M ED 18:29 → M ED INP 18:30 → ENRESERV 09-14 00:16 → M MSPAV 09-14 01:02
PROVIDERS: ADMIT Internal Medicine; ATTEND Internal Medicine Nephrology
DX: R10.11 Right upper quadrant pain (principal); I16.0 Hypertensive urgency; K21.9 Gastro-esophageal reflux disease without esophagitis; M16.0 Bilateral primary osteoarthritis of hip; M47.812 Spondylosis without myelopathy or radiculopathy, cervical region; Z90.5 Acquired absence of kidney; G57.82 Other specified mononeuropathies of left lower limb; G89.29 Other chronic pain; R11.2 Nausea with vomiting, unspecified; K29.80 Duodenitis without bleeding; K57.90 Diverticulosis of intestine, part unspecified, without perforation or abscess without bleeding; K76.0 Fatty (change of) liver, not elsewhere classified; Z79.899 Other long term (current) drug therapy; Z79.891 Long term (current) use of opiate analgesic; Z87.81 Personal history of (healed) traumatic fracture
CPT/HCPCS: 36415; 74177; 76705; 80047; 80053; 80076; 83605; 83690; 85025; 85027; 85610; 85730; 86850; 86900; 86901; 93005; 93041; 96361; 96374; 96375; 96376; 99285; C9113; J1170; J1885; J2270; J2405; Q9967

== ENCOUNTER → 2019-09-23 | Outpatient (CLI) | payer MEDICAID, OTHER ==
[~2019-09-23] MED LIST changes: +ENAL20TA PO; +GABA-843 PO; +HYDR25TA PO; +OMEP-221 PO
== END ==
LOC: M LABSMTC 11:06
PROVIDERS: ATTEND Anesthesiology
DX: Z01.818 Encounter for other preprocedural examination (principal); Z11.59 Encounter for screening for other viral diseases
CPT/HCPCS: C9803; U0003

== ENCOUNTER → 2019-09-26 | Day surgery (SDC) | payer OTHER ==
[~2019-09-26] VITALS: Ht 182.9 cm; Wt 77.1 kg
[~2019-09-26] MED LIST changes: +NS 1,000 ML IV ONE
== END | disposition other institution (70) ==
LOC: M OPP 08:52
PROVIDERS: ATTEND Internal Medicine Gastroenterology
DX: K92.1 Melena (principal); Z53.09 Procedure and treatment not carried out because of other contraindication

== ENCOUNTER → 2019-10-09 | Outpatient (CLI) | payer OTHER ==
[~2019-10-09] MED LIST changes: +DICY10CA13 PO; -NS 1,000 ML IV ONE
--- NOTE | 2019-10-09 10:59 | REP ---
Hepatobiliary scan and gallbladder ejection fraction: History: Repeat exam, right upper quadrant pain. Comparison study is from January 04, 2007. Technique: 6.6 mCi of technetium-99m mebrofenin was injected and sequential anterior images are acquired. 65 minutes after the mebrofenin injection, the patient consumed 8 ounces Ensure and an additional 60 minutes of imaging was acquired. Regions of interest are plotted around the gallbladder. Findings: The initial hepatocellular parenchymal uptake phase is normal and homogeneous. Intra- and extra-hepatic bile ducts are labeled by the 10 -minute image. The gallbladder is first labeled on the 15 -minute image. There is normal washout from the liver parenchyma into the gallbladder and small intestine on subsequent images. The gallbladder ejection fraction is 54 %. Values greater than 35 % are considered normal with this technique. Impression: Normal hepatobiliary scan and normal gallbladder ejection fraction. Electronically Signed by Sonny Mohan MD 10/09/2019 10:50 A
== END ==
LOC: M RAD 07:20
PROVIDERS: ATTEND Nurse Practitioner Family
DX: R10.11 Right upper quadrant pain (principal)
CPT/HCPCS: 78227; A9537

== ENCOUNTER 2019-10-14 10:14 | Emergency (ER) | payer MEDICAID, OTHER ==
[~2019-10-14] VITALS: Ht 182.9 cm; Wt 72.8 kg
[~2019-10-14 10:14] MED LIST changes: -DICY10CA13 PO
[2019-10-14 11:00] LABS: BASO # 0.1 10^3/uL (0.0-0.2); BASO % 0.7 % (0.0-1.0); EOS # 0.1 10^3/uL (0.0-0.5); HEMATOCRIT 40.1 % (42.0-52.0); HEMOGLOBIN 14.6 g/dl (13.5-17.5); LYMPH # 1.2 10^3/uL (1.5-5.0); LYMPH % 16.3 % (24.0-44.0); MEAN CORPUSCULAR HEMOGLOBIN 32.4 pg (27.0-33.0); MEAN CORPUSCULAR HGB CONC 36.4 g/dl (32.0-36.5); MEAN CORPUSCULAR VOLUME 88.9 fl (80.0-96.0); MONO # 0.7 10^3/uL (0.0-0.8); MONO % 9.4 % (0.0-5.0); NEUTROPHILS # 5.3 10^3/uL (1.5-8.5); NEUTROPHILS % 72.3 % (36.0-66.0); PLATELET COUNT, AUTOMATED 260 10^3/uL (150-450); RED BLOOD COUNT 4.51 10^6/uL (4.30-6.10); WHITE BLOOD COUNT 7.4 10^3/uL (4.0-10.0)
[2019-10-14] MEDS ORDERED: ONDANSETRON 4MG/2ML VIAL IV ONE (11:00)
[2019-10-14] MEDS ORDERED: NS 1,000 ML IV ONE (11:00)
[2019-10-14 11:25] LABS: ALBUMIN 4.1 GM/DL (3.2-5.2); ALT/SGPT 40 U/L (12-78); AMYLASE 94 U/L (25-115); BILIRUBIN,DIRECT 0.3 MG/DL (0.0-0.2); BILIRUBIN,TOTAL 0.6 MG/DL (0.2-1.0); BLOOD UREA NITROGEN 5 MG/DL (7-18); C REACTIVE PROTEIN QUANTITATIV < 0.30 MG/DL (0.00-0.30); CALCIUM LEVEL 9.5 MG/DL (8.5-10.1); CARBON DIOXIDE LEVEL 24 MEQ/L (21-32); CHLORIDE LEVEL 90 MEQ/L (98-107); CREATININE FOR GFR 0.76 MG/DL (0.70-1.30); GLOMERULAR FILTRATION RATE > 60.0 (>56); GLUCOSE, FASTING 76 MG/DL (70-100); LIPASE 329 U/L (73-393); POTASSIUM SERUM 4.1 MEQ/L (3.5-5.1); SODIUM LEVEL 122 MEQ/L (136-145); TOTAL PROTEIN 7.3 GM/DL (6.4-8.2)
[2019-10-14 12:16] LABS: ERYTHROCYTE SEDIMENTATION RATE 3 mm/hr (0-20)
[2019-10-14] MEDS ORDERED: DICYCLOMINE INJ 20MG/2ML (J0500) IM ONE (13:00)
--- NOTE | 2019-10-14 13:08 | REP ---
KUB ABDOMEN AND PELVIS: Two KUB films of the abdomen and pelvis are performed. Bowel gas is scattered throughout the GI tract with no compelling evidence for small bowel obstruction. Metallic clips are seen in the left abdomen. A few phleboliths are seen in the inferior pelvis. There are degenerative changes of the spine. IMPRESSION: No acute abnormalities detected. No radiographic evidence of small bowel obstruction. Electronically Signed by Alban Degroot MD 10/15/2019 04:38 P
[2019-10-14] MEDS ORDERED: DICY10CA13 PO (14:05)
[2019-10-14] MEDS ORDERED: ONDA4TAB6 PO (14:05)
[2019-10-14 14:10] VITALS: BP 134/98
== END 2019-10-14 14:18 | disposition home or self-care (01) ==
LOC: M ED 10:14
DX: R10.11 Right upper quadrant pain (principal); R19.7 Diarrhea, unspecified; E87.1 Hypo-osmolality and hyponatremia; Z79.899 Other long term (current) drug therapy; Z88.8 Allergy status to other drugs, medicaments and biological substances; Z91.010 Allergy to peanuts
CPT/HCPCS: 74018; 80048; 80076; 82150; 83690; 85025; 85652; 86140; 87507; 96361; 96372; 96374; 99284; J0500; J2405

== ENCOUNTER → 2019-11-06 | Outpatient (CLI) | payer MEDICAID, OTHER ==
[~2019-11-06] MED LIST changes: +CYCL-707 PO; +DICY10CA13 PO; +ENAL-36 PO; -ENAL10TA2 PO; -ENAL20TA PO; +ENAL20TA11 PO; +HYDR-3910 PO; +PANT40TA29 PO; -PANT40TA3 PO
== END ==
LOC: M LABSMTC 12:10
PROVIDERS: ATTEND Anesthesiology
DX: Z01.818 Encounter for other preprocedural examination (principal); Z11.59 Encounter for screening for other viral diseases
CPT/HCPCS: C9803; U0003

== ENCOUNTER 2019-11-11 06:35 | Day surgery (SDC) | payer OTHER ==
[~2019-11-11] VITALS: Ht 182.9 cm; Wt 72.5 kg
[2019-11-11] MEDS ORDERED: NS 1,000 ML IV ONE (07:00)
[2019-11-11] MEDS ORDERED: fentaNYL 100 MCG/2 ML INJECTION (J3010) As Ordered ONE (07:14)
[2019-11-11] MEDS ORDERED: LIDOCAINE 2% 100MG/5ML SDV (FOR ANES.) As Ordered ONE (07:14)
[2019-11-11] MEDS ORDERED: propofoL 200 MG/20 ML VIAL As Ordered ONE (07:14)
[2019-11-11] MEDS ORDERED: SIMETHICONE 40MG/0.6ML DROPS 30ML As Ordered ONE (07:15)
--- NOTE | 2019-11-11 07:53 | ROOR ---
Patient Name: Tommy Bradford Procedure Date: 11/11/2019 7:35 AM Date of : 1960 Age: 59 Room: [facility] Gender: Male Note Status: Finalized Procedure: Upper GI endoscopy Indications: Epigastric abdominal pain, Abdominal pain in the right upper quadrant Providers: Sumit VEGA MD Referring MD: Sydnie Castro NP Requesting Provider: Medicines: Monitored Anesthesia Care Complications: No immediate complications. Procedure: Pre-Anesthesia Assessment: - The heart rate, respiratory rate, oxygen saturations, blood pressure, adequacy of pulmonary ventilation, and response to care were monitored throughout the procedure. The Endoscope was introduced through the mouth, and advanced to the second part of duodenum. The upper GI endoscopy was accomplished without difficulty. The patient tolerated the procedure well. Findings: White plaques were found in the entire esophagus. The exam of the esophagus was otherwise normal. The entire examined stomach was normal. The examined duodenum was normal. Impression: - Esophageal plaques were found, consistent with candidiasis. - Normal stomach. - Normal examined duodenum. - No specimens collected. Recommendation: - Nystatin suspension 100,000 units PO QID for 2 weeks. - (the script was sent to your pharmacy on file) Sumit Vega MD Sumit VEGA MD 11/11/2019 7:53:09 AM Electronically signed by Sumit VEGA MD Number of Addenda: 0 Note Initiated On: 11/11/2019 7:35 AM Estimated Blood Loss: Estimated blood loss: none.
--- NOTE | 2019-11-11 08:10 | ROOR ---
Patient Name: Tommy Bradford Procedure Date: 11/11/2019 7:36 AM Date of : 1960 Age: 59 Room: [facility] Gender: Male Note Status: Finalized Procedure: Colonoscopy Indications: Generalized abdominal pain Providers: Sumit VEGA MD Referring MD: Sydnie Castro NP Requesting Provider: Medicines: Monitored Anesthesia Care Complications: No immediate complications. Procedure: Pre-Anesthesia Assessment: - The heart rate, respiratory rate, oxygen saturations, blood pressure, adequacy of pulmonary ventilation, and response to care were monitored throughout the procedure. The Colonoscope was introduced through the anus and advanced to 10 cm into the ileum. The colonoscopy was performed without difficulty. The patient tolerated the procedure well. The quality of the bowel preparation was unsatisfactory. The colonoscopy was somewhat difficult due to inadequate bowel prep. Successful completion of the procedure was aided by lavage. The patient tolerated the procedure well. Findings: The perianal and digital rectal examinations were normal. The exam was otherwise normal throughout the examined colon. The terminal ileum appeared normal. Small Internal Hemorrhoids. Impression: - Preparation of the colon was unsatisfactory. - The colon is grossly free of obstructing lesions, however small lesions may have been missed. - The examined portion of the ileum was normal. - Small Internal Hemorrhoids. - No specimens collected. Recommendation: - Repeat colonoscopy at the next available appointment because the bowel preparation was poor. - My office will call you to reschedule the procedure. Sumit Vega MD Sumit VEGA MD 11/11/2019 8:10:32 AM Electronically signed by Sumit VEGA MD Number of Addenda: 0 Note Initiated On: 11/11/2019 7:36 AM Estimated Blood Loss: Estimated blood loss: none.
[2019-11-11 08:40] VITALS: BP 149/105
== END 2019-11-11 08:42 | disposition home or self-care (01) ==
LOC: M OPP 06:35
PROVIDERS: ATTEND Internal Medicine Gastroenterology
DX: K64.8 Other hemorrhoids (principal); R10.84 Generalized abdominal pain; K22.9 Disease of esophagus, unspecified; R10.13 Epigastric pain; R10.11 Right upper quadrant pain; Z79.899 Other long term (current) drug therapy; Z79.891 Long term (current) use of opiate analgesic; Z88.8 Allergy status to other drugs, medicaments and biological substances; Z91.010 Allergy to peanuts
CPT/HCPCS: 43235; 45378; J3010

== ENCOUNTER 2020-04-01 22:27 | Emergency (ER) | payer OTHER, MEDICAID ==
[~2020-04-01] VITALS: Ht 182.9 cm; Wt 73.8 kg
[2020-04-01] MEDS ORDERED: NS 500 ML IV ONE (23:00)
[2020-04-02] MEDS ORDERED: MORPHINE 2 MG/ML 1ML VIAL (J2270) IV PRN (00:15)
[2020-04-02 00:30] LABS: BASO % 0.2 % (0.0-1.0); HEMATOCRIT 43.3 % (42.0-52.0); HEMOGLOBIN 14.7 g/dl (13.5-17.5); LYMPH # 0.7 10^3/uL (1.5-5.0); LYMPH % 5.9 % (24.0-44.0); MEAN CORPUSCULAR HGB CONC 33.9 g/dl (32.0-36.5); MEAN CORPUSCULAR VOLUME 94.1 fl (80.0-96.0); MONO # 0.7 10^3/uL (0.0-0.8); MONO % 6.2 % (0.0-5.0); NEUTROPHILS # 9.6 10^3/uL (1.5-8.5); NEUTROPHILS % 87.2 % (36.0-66.0); PLATELET COUNT, AUTOMATED 313 10^3/uL (150-450)
[2020-04-02] MEDS ORDERED: ONDANSETRON 4MG/2ML VIAL IV ONE (00:30)
[2020-04-02 00:38] LABS: INR 0.91; PROTHROMBIN TIME 12.4 SECONDS (12.5-14.3)
[2020-04-02 00:39] LABS: PARTIAL THROMBOPLASTIN TIME 25.1 SECONDS (24.2-38.5)
[2020-04-02 00:53] LABS: ALT/SGPT 68 U/L (12-78); AMYLASE 49 U/L (25-115); BILIRUBIN,DIRECT 0.4 MG/DL (0.0-0.2); BILIRUBIN,TOTAL 1.2 MG/DL (0.2-1.0); BLOOD UREA NITROGEN 9 MG/DL (7-18); CALCIUM LEVEL 9.8 MG/DL (8.5-10.1); CARBON DIOXIDE LEVEL 25 MEQ/L (21-32); CHLORIDE LEVEL 99 MEQ/L (98-107); CK-MB VALUE MASS < 1.0 NG/ML (<3.6); CPK CREATINE PHOSPHOKINASE 49 U/L (39-308); CREATININE FOR GFR 1.23 MG/DL (0.70-1.30); ETHYL ALCOHOL (ETHANOL) < 0.003 % (0.000-0.010); GLOMERULAR FILTRATION RATE > 60.0 (>56); GLUCOSE, FASTING 113 MG/DL (70-100); LIPASE 131 U/L (73-393); MB/CK RELATIVE INDEX 2.04 (< OR =4); POTASSIUM SERUM 4.1 MEQ/L (3.5-5.1); SODIUM LEVEL 135 MEQ/L (136-145); TOTAL PROTEIN 7.6 GM/DL (6.4-8.2); TROPONIN I < 0.02 NG/ML (< 0.10)
[2020-04-02] MEDS ORDERED: HYDROMORPHONE HCL 0.5 MG/ 0.5 ML SYRINGE (J1170 PER 1) IV PRN (01:15)
[2020-04-02] MEDS ORDERED: NS 500 ML IV ONE (01:15)
[2020-04-02] MEDS ORDERED: ISOVUE-370 76% 100ML VIAL As Ordered ONE (01:23)
--- NOTE | 2020-04-02 01:33 | REPVR ---
PROCEDURE INFORMATION: Exam: XR Chest, 1 View Exam date and time: 04/02/2020 1:26 AM Age: 59 years old Clinical indication: Chest pain; Additional info: Abd pain TECHNIQUE: Imaging protocol: XR of the chest Views: 1 view. COMPARISON: CR Abdomen,Flat Upright,PA CHEST 07/18/2014 1:33 PM FINDINGS: Lungs: Unremarkable. No consolidation. Pleural space: Unremarkable. No pleural effusion. No pneumothorax. Heart/Mediastinum: Unremarkable. No cardiomegaly. Bones/joints: Unremarkable. IMPRESSION: Negative chest without change from 07/18/2014. Electronically signed by: Tommy Angel On 04/02/2020 01:33:30 AM
--- NOTE | 2020-04-02 01:52 | REPVR ---
PROCEDURE INFORMATION: Exam: CT Angiography Chest With Contrast Exam date and time: 04/02/2020 1:19 AM Age: 59 years old Clinical indication: Chest pain; Type not specified; Additional info: Ruq, right lower chest pain TECHNIQUE: Imaging protocol: Computed tomographic angiography of the chest with intravenous contrast. 3D rendering (Not supervised by radiologist): MIP and/or 3D reconstructed images were created by the technologist. Radiation optimization: All CT scans at this facility use at least one of these dose optimization techniques: automated exposure control; mA and/or kV adjustment per patient size (includes targeted exams where dose is matched to clinical indication); or iterative reconstruction. Contrast material: ISO; Contrast volume: 100 ml; Contrast route: INTRAVENOUS (IV); COMPARISON: CT ANGIO CHEST 09/14/2013 1:26 PM FINDINGS: Pulmonary arteries: The main pulmonary artery measures 22 mm. No pulmonary embolism is identified. Aorta: The ascending thoracic aorta measures 43 mm. No gross or obvious aortic dissection is identified distal to the mid arch. Artifact and image degradation precludes detailed evaluation of the ascending thoracic aorta. Lungs: Unremarkable. No consolidation. No masses. Pleural space: Unremarkable. No pneumothorax. No pleural effusion. Heart: Trace pericardial effusion anteriorly. Lymph nodes: Unremarkable. No enlarged lymph nodes. Liver: There is low attenuation adjacent to the falciform ligament of the liver consistent with focal fatty infiltration. Bones/joints: Mild anterior wedge configuration of T3 which appears to be chronic. Soft tissues: Unremarkable. IMPRESSION: 1. Mild aneurysmal dilatation of the ascending thoracic aorta measuring 43 mm. 2. Trace pericardial effusion anteriorly. 3. Otherwise negative CTA chest. No pulmonary embolism is identified. Electronically signed by: Tommy Angel On 04/02/2020 01:52:16 AM
--- NOTE | 2020-04-02 01:58 | REPVR ---
PROCEDURE INFORMATION: Exam: CT Abdomen And Pelvis With Contrast Exam date and time: 04/02/2020 1:19 AM Age: 59 years old Clinical indication: Abdominal pain; Localized; Right upper quadrant (ruq); Additional info: Ruq, right lower chest pain TECHNIQUE: Imaging protocol: Computed tomography of the abdomen and pelvis with intravenous contrast. Radiation optimization: All CT scans at this facility use at least one of these dose optimization techniques: automated exposure control; mA and/or kV adjustment per patient size (includes targeted exams where dose is matched to clinical indication); or iterative reconstruction. Contrast material: ISO; Contrast volume: 100 ml; Contrast route: INTRAVENOUS (IV); COMPARISON: CT ABD/PEL W/IV CONTRAST ONLY 09/13/2019 9:02 PM FINDINGS: Liver: There is low attenuation adjacent to the falciform ligament of the liver consistent with focal fatty infiltration. The liver attenuation is 42 Hounsfield units and the spleen is 151 Hounsfield units as acquired in the arterial phase. Gallbladder and bile ducts: Normal. No calcified stones. No ductal dilation. Pancreas: Normal. No ductal dilation. Spleen: Normal. No splenomegaly. Adrenal glands: Normal. No mass. Kidneys and ureters: There are areas of focal parenchymal loss in the right kidney. Absent left kidney with surgical clips consistent with left nephrectomy. Probable right renal cyst measuring 8 mm and is probably a simple cysts. No follow-up imaging is recommended. Stomach and bowel: Unremarkable. No obstruction. No mucosal thickening. Appendix: A normal appendix is seen. Intraperitoneal space: Mild free fluid in the pelvis with a Hounsfield measurement of 6 consistent with simple fluid. Vasculature: There is mild calcification of the abdominal aorta with extension into the iliac arteries. Lymph nodes: Unremarkable. No enlarged lymph nodes. Urinary bladder: Unremarkable as visualized. Reproductive: Unremarkable as visualized. Bones/joints: Unremarkable. No acute fracture. Soft tissues: Unremarkable. IMPRESSION: 1. Status post left nephrectomy which is similar to 09/13/2019. There are also some areas of focal parenchymal loss of the right kidney. 2. Probable fatty infiltration of the liver with localized fatty infiltration adjacent to the falciform ligament. 3. Mild free fluid in the pelvis which is nonspecific but unusual in a male and increased since the prior study. COMMENTS: Consistent with the [employer]'s Incidental Findings Committee white paper (J Am Michelle Radiol 2018): Any incidental renal lesion less than 1 cm or classified as too small to characterize, or any incidental cystic renal lesion characterized as simple-appearing, is likely benign. No follow-up imaging is recommended for these lesions per consensus recommendations based on imaging criteria. Electronically signed by: Tommy Angel On 04/02/2020 01:58:22 AM
[2020-04-02] MEDS ORDERED: GI COCKTAIL 50ML BTL(HYOSCYAMINE/MAALOX/LIDOCAINE VISCOUS)(1:3:1) PO ONE (03:15)
[2020-04-02] MEDS ORDERED: HYDROMORPHONE HCL 0.5 MG/ 0.5 ML SYRINGE (J1170 PER 1) IV ONE (03:15)
[2020-04-02] MEDS ORDERED: ONDA4TAB6 PO (04:56)
[2020-04-02] MEDS ORDERED: DILA2TAB6 PO (04:56)
[2020-04-02 05:11] VITALS: BP 158/79
--- NOTE | 2020-04-03 09:20 | ECGEPIP ---
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
--- NOTE | 2020-04-05 19:45 | ED PDOC ---
Post-Departure Follow-Up cta chest faxed to dr sun for fu Jere Friedman MD Apr 05, 2020 19:45
== END 2020-04-02 05:13 | disposition home or self-care (01) ==
LOC: M ED 22:27
DX: R10.9 Unspecified abdominal pain (principal); R00.0 Tachycardia, unspecified; R94.31 Abnormal electrocardiogram [ECG] [EKG]; I10 Essential (primary) hypertension; E78.5 Hyperlipidemia, unspecified; K21.9 Gastro-esophageal reflux disease without esophagitis; K42.9 Umbilical hernia without obstruction or gangrene; Z86.14 Personal history of Methicillin resistant Staphylococcus aureus infection; Z79.899 Other long term (current) drug therapy; Z88.8 Allergy status to other drugs, medicaments and biological substances; Z91.010 Allergy to peanuts
CPT/HCPCS: 71045; 71275; 74177; 80048; 80076; 82150; 82550; 82553; 83605; 83690; 85025; 85610; 85730; 87631; 93005; 93041; 96360; 96361; 96375; 96376; 99285; G0480; J1170; J2270; J2405; Q9967

== ENCOUNTER 2020-04-28 13:40 | Emergency (ER) | payer MEDICAID, OTHER ==
[~2020-04-28] VITALS: Ht 182.9 cm; Wt 69.9 kg
[~2020-04-28 13:40] MED LIST changes: +DILA2TAB6 PO
[2020-04-28 14:19] LABS: BASO # 0.1 10^3/uL (0.0-0.2); BASO % 0.6 % (0.0-1.0); EOS % 0.3 % (0.0-3.0); HEMATOCRIT 43.5 % (42.0-52.0); HEMOGLOBIN 14.8 g/dl (13.5-17.5); LYMPH # 1.4 10^3/uL (1.5-5.0); LYMPH % 15.9 % (24.0-44.0); MEAN CORPUSCULAR HEMOGLOBIN 32.2 pg (27.0-33.0); MEAN CORPUSCULAR VOLUME 94.6 fl (80.0-96.0); MONO # 0.9 10^3/uL (0.0-0.8); MONO % 10.1 % (0.0-5.0); NEUTROPHILS # 6.5 10^3/uL (1.5-8.5); NEUTROPHILS % 72.7 % (36.0-66.0); PLATELET COUNT, AUTOMATED 303 10^3/uL (150-450)
[2020-04-28 14:34] LABS: INR 0.92; PROTHROMBIN TIME 12.5 SECONDS (12.5-14.3)
--- NOTE | 2020-04-28 14:47 | REP ---
INDICATION: CHEST PAIN COMPARISON: 04/02/2020 TECHNIQUE: Portable AP view of the chest FINDINGS: The mediastinum and cardiac silhouette are stable and within normal limits for portable technique. The lung vital are clear without acute consolidation, effusion, or pneumothorax. Skeletal structures are intact. IMPRESSION: No acute cardiopulmonary process appreciated. <Electronically signed by Juan Aguirre > 04/28/20 [id number]
[2020-04-28 14:49] LABS: ALBUMIN 4.2 GM/DL (3.2-5.2); ALT/SGPT 63 U/L (12-78); BILIRUBIN,DIRECT 0.4 MG/DL (0.0-0.2); BILIRUBIN,TOTAL 1.1 MG/DL (0.2-1.0); BLOOD UREA NITROGEN 7 MG/DL (7-18); CALCIUM LEVEL 9.8 MG/DL (8.5-10.1); CARBON DIOXIDE LEVEL 24 MEQ/L (21-32); CHLORIDE LEVEL 100 MEQ/L (98-107); CK-MB VALUE MASS < 1.0 NG/ML (<3.6); CPK CREATINE PHOSPHOKINASE 45 U/L (39-308); GLOMERULAR FILTRATION RATE > 60.0 (>56); GLUCOSE, FASTING 115 MG/DL (70-100); LIPASE 447 U/L (73-393); MB/CK RELATIVE INDEX 2.22 (< OR =4); SODIUM LEVEL 133 MEQ/L (136-145); TOTAL PROTEIN 7.6 GM/DL (6.4-8.2); TROPONIN I < 0.02 NG/ML (< 0.10)
[2020-04-28 16:34] VITALS: BP 116/89
--- NOTE | 2020-04-30 21:20 | ECGEPIP ---
[facility] - ED Test Date: 2020-04-28 Pat Name: YOLI YANES Department: Room: - Gender: Male [employer] Molding Machine Operator: KATRIN : 1960 Requested By: Handy Goodrich Order Number: [id number] Reading MD: Handy Khalil Measurements Intervals [place] Rate: 95 P: 70 CA: 140 QRS: 72 QRSD: 91 T: 67 QT: 356 QTc: 449 Interpretive Statements SINUS RHYTHM INCOMPLETE RIGHT BUNDLE BRANCH BLOCK SIMILAR TO 04/01/20 Electronically Signed on 04-30-2020 21:20:14 EST by Handy Khalil
== END 2020-04-28 16:37 | disposition home or self-care (01) ==
LOC: M ED 13:40
DX: G89.29 Other chronic pain (principal); R10.11 Right upper quadrant pain; I10 Essential (primary) hypertension; E78.5 Hyperlipidemia, unspecified; K21.9 Gastro-esophageal reflux disease without esophagitis; F41.9 Anxiety disorder, unspecified; K57.92 Diverticulitis of intestine, part unspecified, without perforation or abscess without bleeding; K42.9 Umbilical hernia without obstruction or gangrene; Z79.899 Other long term (current) drug therapy; Z91.010 Allergy to peanuts; Z88.8 Allergy status to other drugs, medicaments and biological substances

== ENCOUNTER → 2020-09-30 | Outpatient (REF) | payer MEDICAID ==
[~2020-09-30] MED LIST changes: +GABA-282 PO; -GABA-843 PO
[2020-09-30 11:47] LABS: HEMOGLOBIN 13.6 g/dl (13.5-17.5); MEAN CORPUSCULAR HEMOGLOBIN 31.9 pg (27.0-33.0); MEAN CORPUSCULAR VOLUME 93.9 fl (80.0-96.0); PLATELET COUNT, AUTOMATED 280 10^3/uL (150-450); RED BLOOD COUNT 4.26 10^6/uL (4.30-6.10)
[2020-09-30 12:27] LABS: ALBUMIN 3.8 GM/DL (3.2-5.2); ALT/SGPT 25 U/L (12-78); BILIRUBIN,TOTAL 0.3 MG/DL (0.2-1.0); BLOOD UREA NITROGEN 5 MG/DL (7-18); CALCIUM LEVEL 9.3 MG/DL (8.5-10.1); CARBON DIOXIDE LEVEL 28 MEQ/L (21-32); CHLORIDE LEVEL 99 MEQ/L (98-107); CHOLESTEROL LEVEL 186 MG/DL (<200); CHOLESTEROL RISK RATIO 3.206 (<5); CREATININE FOR GFR 0.72 MG/DL (0.70-1.30); GLOMERULAR FILTRATION RATE > 60.0 (>56); GLUCOSE, FASTING 89 MG/DL (70-100); HDL CHOLESTEROL 58 MG/DL (>40); IRON (FE) 104 UG/DL (65-175); LDL CHOLESTEROL 85 MG/DL (<100); NON-HDL-C 128 MG/DL; PERCENT SATURATION 30.5 % (19.7-50.0); POTASSIUM SERUM 4.6 MEQ/L (3.5-5.1); SODIUM LEVEL 134 MEQ/L (136-145); TOTAL IRON BINDING CAPACITY 341 UG/DL (250-450); TOTAL PROTEIN 7.1 GM/DL (6.4-8.2); TRIGLYCERIDES LEVEL 217 MG/DL (<150)
== END ==
LOC: M SFHCCLAY 06:49
PROVIDERS: ATTEND Nurse Practitioner Family
DX: K21.9 Gastro-esophageal reflux disease without esophagitis (principal); I10 Essential (primary) hypertension; E78.5 Hyperlipidemia, unspecified

== ENCOUNTER 2020-11-02 19:13 | Inpatient (IN) | payer MEDICAID, OTHER ==
[~2020-11-02] VITALS: Ht 182.9 cm; Wt 72.8 kg
[2020-11-02] MEDS ORDERED: diphenhydrAMINE 50MG/ML VIAL (J1200) IV ONE (19:25)
[2020-11-02] MEDS ORDERED: FAMOTIDINE INJ 20MG/2ML VIAL (S0028 PER 1) IVP ONE (19:25)
[2020-11-02] MEDS ORDERED: methylPREDNISolone 125MG 2ML VIAL IV ONE ×2 (19:25→22:35)
--- NOTE | 2020-11-02 19:55 | REP ---
INDICATION: DYSPNEA/COUGH. COMPARISON: Comparison radiograph April 28, 2020. TECHNIQUE: Portable upright AP chest radiograph. FINDINGS: The lungs are well inflated and free of infiltrate. Pleural angles are sharp. Heart size is normal. Pulmonary vasculature is not increased. EKG monitoring electrodes are seen. The thoracic aorta is somewhat tortuous. No acute bony abnormality. IMPRESSION: No active disease. <Electronically signed by Rome Mohan > 11/02/201950
[2020-11-02 20:02] LABS: BASO % 0.2 % (0.0-1.0); HEMATOCRIT 37.6 % (42.0-52.0); HEMOGLOBIN 13.3 g/dl (13.5-17.5); LYMPH # 0.2 10^3/uL (1.5-5.0); LYMPH % 2.5 % (24.0-44.0); MEAN CORPUSCULAR HEMOGLOBIN 32.5 pg (27.0-33.0); MEAN CORPUSCULAR HGB CONC 35.4 g/dl (32.0-36.5); MEAN CORPUSCULAR VOLUME 91.9 fl (80.0-96.0); MONO # 0.1 10^3/uL (0.0-0.8); MONO % 1.5 % (2.0-8.0); NEUTROPHILS # 7.7 10^3/uL (1.5-8.5); NEUTROPHILS % 94.9 % (36.0-66.0); PLATELET COUNT, AUTOMATED 274 10^3/uL (150-450); RED BLOOD COUNT 4.09 10^6/uL (4.30-6.10); WHITE BLOOD COUNT 8.1 10^3/uL (4.0-10.0)
[2020-11-02 20:26] LABS: ALBUMIN 3.3 GM/DL (3.2-5.2); ALT/SGPT 40 U/L (12-78); BILIRUBIN,DIRECT 0.4 MG/DL (0.0-0.2); BILIRUBIN,TOTAL 0.6 MG/DL (0.2-1.0); BLOOD UREA NITROGEN 10 MG/DL (7-18); C REACTIVE PROTEIN QUANTITATIV 6.33 MG/DL (0.00-0.30); CALCIUM LEVEL 9.2 MG/DL (8.5-10.1); CARBON DIOXIDE LEVEL 20 MEQ/L (21-32); CHLORIDE LEVEL 96 MEQ/L (98-107); COMPLEMENT C4 22 MG/DL (10-40); CREATININE FOR GFR 0.92 MG/DL (0.70-1.30); GLOMERULAR FILTRATION RATE > 60.0 (>56); GLUCOSE, FASTING 108 MG/DL (70-100); POTASSIUM SERUM 4.9 MEQ/L (3.5-5.1); SODIUM LEVEL 127 MEQ/L (136-145); TOTAL PROTEIN 6.9 GM/DL (6.4-8.2)
[2020-11-02 20:37] LABS: ERYTHROCYTE SEDIMENTATION RATE 26 mm/hr (0-20)
[2020-11-02] MEDS ORDERED: C1 ESTERASE INHIBITOR IV ONE (20:40)
[2020-11-02] MEDS: THIAMINE 100 MG TAB PO SCH (21:00)
[2020-11-02] MEDS ORDERED: diphenhydrAMINE 50MG/ML VIAL (J1200) IV STA (22:31)
[2020-11-02 22:54] LABS: ETHYL ALCOHOL (ETHANOL) 0.016 % (0.000-0.010); LIPASE 59 U/L (73-393)
[2020-11-02] MEDS ORDERED: ACETAMINOPHEN TAB 650MG DOSE (2X325MG) PO PRN (23:00)
[2020-11-02] MEDS ORDERED: diphenhydrAMINE 50MG/ML VIAL (J1200) IV PRN (23:00)
--- NOTE | 2020-11-02 23:18 | HPEPDOC ---
[facility] Medical History & Physical Date of Admission Nov 02, 2020 Date of Service: Nov 02, 2020 Primary Care Physician: Sydnie Castro Attending Physician: ALONA ALVAREZ MD History and Physical TIME OF SERVICE: 11:30 PM CHIEF COMPLAINT: Facial swelling HISTORY OF PRESENT ILLNESS: Mr. Bradford reports having episodes of facial swelling affecting mainly his lips and groin area off and on for several years. He reports being hospitalized in [place] in [place] and here in [facility]. This is the fourth or fifth episode. He is not sure what the cause of the symptoms were and reports being given various therapies about the cause of the swelling. His PCP has referred him to exercise science internship to manage his blood pressure and determine if lisinopril which she has been taking for 10 years, is the cause of his symptoms, but the appointment is pending. Earlier on today he presented to [facility] with complaints of lip swelling was given Benadryl and some other medications and went home. In the interim he visited a friend and had an alcoholic evaluation but his symptoms got worse therefore he came to [facility] for evaluation. He denies having difficulty breathing. Shortly after receiving additional doses of Benadryl steroids and Pepcid the swelling around his eyes became much worse and he complained of having an itchy throat. Roscoe Clemens attempted to check his airway but the laryngoscope but the patient could not tolerate the procedure. REVIEW OF SYSTEMS: 10 point review of systems negative except as listed in HPI PAST MEDICAL/ SURGICAL HISTORY: Essential hypertension, history of pancreatitis, osteoarthritis, MRSA, arthritis, umbilical hernia repair, left nephrectomy, right wrist surgery, resection of sinus cavity tumor SOCIAL HISTORY: Initially denied smoking drinking or using recreational drugs but when I informed him that his alcohol level was elevated he admitted to drinking alcohol and using various recreational drugs to manage his chronic pain. FAMILY HISTORY: His father had colon cancer/his mother had hypertension intrace rebral hemorrhage/his maternal grandfather had rheumatoid arthritis/his sister had a stroke ALLERGIES: Please see below. HOME MEDICATIONS: Please see below. PHYSICAL EXAMINATION: Vital Signs Date Time Temp Pulse Resp B/P (MAP) Pulse Ox O2 Delivery O2 Flow Rate FiO2 11/02/20 19:14 97.3 82 26 160/91 (114) 97 Room Air GENERAL APPEARANCE: Slim build and developed / NAD HEENT: He has edema on the medial aspect of the lower forehead/bilateral periorbital edema, the left eye is completely swollen shut to the point that his vision is occluded, there is less swelling around the right eye, his lips and tongue do not appear swollen CARDIOVASCULAR: RRR/NMRG / no LE edema LUNGS: CTAB on RA ABDOMEN: contour flat MUSCULOSKELETAL: He has temporal wasting/ ROMIx 4 INTEGUMENT: He is slightly flushed and diaphoretic NEUROLOGICAL: CN 2-12 intact / speech not dysarthric PSYCHIATRIC: A&O x3/able to understand and follow all commands LABORATORY DATA: IMAGING: Chest x-ray IMPRESSION: No active disease. MICROBIOLOGY: His respiratory panel is negative ASSESSMENT: Mr. Bradford is a 60-year-old with a history of episodes of angioedema, HTN, history of pancreatitis & osteoarthritis who was admitted for management of recurrent angioedema and asymptomatic hyponatremia. PLAN: 1 Angioedema His Bender Adverse Drug Reaction Probability Scale score is 2 which indicates that is possible but not completely definitive that this ACEI induced His ESR and CRP are elevated Plan: Because his facial swelling got worse despite receiving several medic ations we will admit to the ICU and monitor him closely to determine if he needs to be intubated/continuous pulse ox/d/c Lisinopril / c/w Diphenhydramine 25mg IV Q6H PRN / Famotidine 20 mg Q12H PRN /because he has already received IV Solu- Medrol we will start oral prednisone prednisone 40mg daily starting tomorrow AND then beckie the dosse over the next 7 days / f/u C4 , C1 esterase inhibitor leve l and function, CRP and ESR /the daytime team may consider placing an Allergy/Immunology consult 2 Uncontrolled HTN His SBP was in the 190s in he the ER He admits to not taking his meds recently He is asymptomatic Plan: IV metoprolol x1 /resume PO metoprolol /discontinue Lisinopril /avoiding diuretics because of his hyponatremia therefore will start low-dose amlodipine 3 Asymptomatic hyponatremia 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 Plan: Follow-up serum osmolality, urine osmolality, and urine sodium to help confirm the cause / NS 4 Mild transaminitis Plan: Follow-up hepatitis panel /the daytime team may consider placing a UDS 5 Suspected alcohol abuse Based on his recent outpatient notes with his PCP his screening for alcohol abuse was positive Plan: Fall and seizure precautions/thiamine multivitamin folic acid per [facility] protocol DVT PROPHYLAXIS: Teds and sequentials DISPOSITION: home after more than 2 midnight's stay Home Medications Scheduled Enalapril Maleate (Enalapril Maleate) 20 Mg Tablet, 20 MG PO BID Metoprolol Tartrate (Lopressor) 100 Mg Tab, 100 MG PO TID Scheduled PRN Cyclobenzaprine HCl (Cyclobenzaprine HCl) 10 Mg Tablet, 10 MG PO TID PRN for MUSCLE SPASMS Oxycodone HCl (Oxycodone HCl) 5 Mg Tablet, 5 MG PO Q4H PRN for PAIN LEVEL 6-10 Allergies Coded Allergies: JENIFER Inhibitors (Verified Allergy, Severe, ANGIOEDEMA, 11/03/20) Peanut (Verified Allergy, Severe, airway issues, 09/19/19) gabapentin (Verified Allergy, Severe, " almost killed him ", 10/14/19) A-FIB/CHADSVASC A-FIB History Current/History of A-Fib/PAF?: No Current PO Anticoag Therapy: No ALONA ALVAREZ MD Nov 02, 2020 23:18
[2020-11-02] MEDS ORDERED: METOPROLOL 5 MG/5 ML VIAL IV PRN (23:45)
[2020-11-03] VITALS (37 sets, daily range): BP systolic 138–187; BP diastolic 87–136
[2020-11-03 01:45] LABS: RSV AMPLIFICATION NEGATIVE (NEGATIVE)
[2020-11-03 01:51] LABS: INR 0.92; PROTHROMBIN TIME 12.6 SECONDS (12.5-14.3)
[2020-11-03] MEDS ORDERED: CYCL-707 PO (04:25)
[2020-11-03] MEDS ORDERED: OXYC-517 PO (04:25)
[2020-11-03 05:17] LABS: HEMATOCRIT 36.5 % (42.0-52.0); HEMOGLOBIN 12.9 g/dl (13.5-17.5); MEAN CORPUSCULAR HEMOGLOBIN 32.6 pg (27.0-33.0); MEAN CORPUSCULAR HGB CONC 35.3 g/dl (32.0-36.5); MEAN CORPUSCULAR VOLUME 92.2 fl (80.0-96.0); PLATELET COUNT, AUTOMATED 275 10^3/uL (150-450); RED BLOOD COUNT 3.96 10^6/uL (4.30-6.10); WHITE BLOOD COUNT 6.1 10^3/uL (4.0-10.0)
[2020-11-03 05:29] LABS: BLOOD UREA NITROGEN 12 MG/DL (7-18); CALCIUM LEVEL 8.9 MG/DL (8.5-10.1); CARBON DIOXIDE LEVEL 23 MEQ/L (21-32); CHLORIDE LEVEL 95 MEQ/L (98-107); CREATININE FOR GFR 0.83 MG/DL (0.70-1.30); GLOMERULAR FILTRATION RATE > 60.0 (>56); GLUCOSE, FASTING 186 MG/DL (70-100); POTASSIUM SERUM 4.8 MEQ/L (3.5-5.1); SODIUM LEVEL 128 MEQ/L (136-145)
[2020-11-03 05:32] LABS: OSMOLALITY SERUM 267 MOSM/KG (275-295)
[2020-11-03] MEDS: LORazepam 2 MG TAB PO PRN ×2 (05:53→10:03)
[2020-11-03] MEDS: NS 1,000 ML IV SCH ×2 (06:34→19:08)
[2020-11-03] MEDS ORDERED: FAMOTIDINE IV BAG 20 MG in IV 1 EA IV PRN (08:00)
[2020-11-03] MEDS ORDERED: predniSONE 20 MG TAB PO SCH (09:00)
[2020-11-03] MEDS: diphenhydrAMINE 50MG/ML VIAL (J1200) IV SCH ×3 (09:05→20:31)
[2020-11-03] MEDS: methylPREDNISolone 125MG 2ML VIAL IV SCH ×3 (09:05→20:33)
[2020-11-03] MEDS: FOLIC ACID 1 MG TAB PO SCH (09:06)
[2020-11-03] MEDS: THIAMINE 100 MG TAB PO SCH ×2 (09:06→21:00)
[2020-11-03] MEDS: MULTIVITAMINS/MINERALS THERAP 1 TAB PO SCH (09:06)
[2020-11-03] MEDS: FAMOTIDINE IV BAG 20 MG in IV 1 EA IV SCH ×2 (09:06→20:31)
[2020-11-03 09:19] LABS: HEPATITIS B SURFACE ANTIGEN NEGATIVE (NEGATIVE)
[2020-11-03 09:47] LABS: HEPATITIS B CORE ANTIBODY IGM NEGATIVE (NEGATIVE)
[2020-11-03 09:49] LABS: HEPATITIS A ANTIBODY IGM NEGATIVE (NEGATIVE)
[2020-11-03] MEDS ORDERED: CYCLOBENZAPRINE 10MG TABLET PO PRN (10:30)
[2020-11-03] MEDS ORDERED: OXAZEPAM 10 MG CAP PO SCH ×2 (12:00→18:00)
[2020-11-03 12:53] LABS: BLOOD UREA NITROGEN 12 MG/DL (7-18); CARBON DIOXIDE LEVEL 24 MEQ/L (21-32); CHLORIDE LEVEL 96 MEQ/L (98-107); CREATININE FOR GFR 0.79 MG/DL (0.70-1.30); GLOMERULAR FILTRATION RATE > 60.0 (>56); GLUCOSE, FASTING 146 MG/DL (70-100); POTASSIUM SERUM 4.2 MEQ/L (3.5-5.1); SODIUM LEVEL 128 MEQ/L (136-145)
[2020-11-03] MEDS ORDERED: METOPROLOL TARTRATE 100 MG TAB PO ONE (13:00)
[2020-11-03] MEDS ORDERED: LORazepam 2 MG/ML VIAL IV ONE (13:10)
[2020-11-03] MEDS ORDERED: LORazepam 2 MG/ML VIAL As Ordered ONE (13:24)
--- NOTE | 2020-11-03 13:41 | IPNPDOC ---
Text Note Date of Service The patient was seen on 11/03/20. NOTE Subjective: Patient is a 52-year-old male with a PMHx of HTN, Hx of Pancreatitis, OA / Arthritis, Hx of MRSA who presented to the hospital with facial swelling. As per patient, he initially reported that he's been experiencing swelling of his lips and groin for several years, occurring intermittently and has seen several providers in [place], [place] and [facility]. Patient had initially presented to [facility] on 11/02 for lip swelling and was given Benadryl plus some additional medications and was subsequently discharged home. Patient was seen by his friend later that day and brought him in to [facility] for further evaluation. Patient was admitted to the hospital service for further evaluation and treatment of his periorbital edema. Patient was seen and examined at the bedside. Patient appears to be confused, only oriented to person. Denies any chest pain, shortness breath or palpitations. Denies any cough or wheezing. Has not expressed any nausea, vomiting, abdominal pain, diarrhea. Is having some difficulty with urination. Objective: Vitals (See below) General: Lying in bed, no acute distress, comfortable, AAOx1 (person only) HEENT: Tongue and lips, does not appear to be swollen periorbital swelling is noted. Left possibly greater than right - reexamination this afternoon has shown some improvement of his swelling CVS: +S1S2 Lungs: Fair air entry b/l, no evidence of wheezing, rales or rhonchi Abdomen: Soft, ND, NT Extremities: RUE with medial aspect of upper arm with repaired laceration (reportedly completed at home, by friend); - Edema, - Calf tenderness Imaging: CXR 11/02: No active disease. Assessment and plan: Acute metabolic encephalopathy - Possibly 2/2 multifactorial etiology; withdrawal from alcohol and/or opiates - Patient reports that he drinks 4 beers daily; has also reported the use of oxycodone about 3-5 tablets at the start of every morning depending on pain - Patient is currently only oriented to person, not to place or time - Will continue with [facility] protocol - Will start Oxycodone PRN based on outpatient regimen - Will check ammonia, B12, Folate, RPR, MICHAEL, CRP - Will check CT head Angioedema - There has been some improvement of his periorbital edema - Physical reveals evidence of swelling around both of his eyes. Patient is able to open his eyes currently - Examination of eyes does not reveal any conjunctival injection and pupils are reactive bilaterally - Will increase corticosteroids to IV Solumedrol - Will c/w Benadryl and Famotidine, will change to scheduled dosing - s/p C1 esterase inhibitor dose - Will avoid use of all JENIFER-inhibitors RUE with prior laceration corrected - Reported to have had correction at home with friend performing sutures - Area with very mild erythema, however, does not appear to be infected - Will check blood cultures, pro-calcitonin - Will hold off on antibiotics at this time HTN - Will resume Metoprolol tartrate 100 TID - Will DC Amlodipine - Will avoid use of Enalapril / JENIFER-inhibitors Hyponatremia - likely 2/2 hypotonic - possibly 2/2 hypovolemic / euvolemic etiology - possibly 2/2 beer potomania - Will check urine and serum osmolality, urine electrolytes, TSH, cortisol baseline - c/w gentle IV fluid hydration - Will check BMP q6h Urinary retention - Will check bladder scans to determine amount of urine with bladder - Will insert Webber catheter if bladder scans revealed urine greater than 400 mL Alcohol abuse history - c/w Thiamine, Folate, MVI DVT prophylaxis - c/w TEDs/Sequentials VS,Fishbone, I+O VS, Fishbone, I+O Laboratory Tests 11/02/20 19:43 11/03/20 04:39 11/03/20 12:06 Vital Signs Date Time Temp Pulse Resp B/P (MAP) Pulse Ox O2 Delivery O2 Flow Rate FiO2 11/03/20 13:05 107 169/106 11/03/20 11:30 98.4 17 98 Room Air I&O- Last 24 Hours up to 6 AM 11/03/20 06:00 Intake Total 240 ml Output Total 60 ml Balance 180 ml SOPHIE MESA MD Nov 03, 2020 13:41
[2020-11-03] MEDS: oxyCODONE 5MG TAB PO PRN (14:20)
[2020-11-03] MEDS ORDERED: LABETALOL 100MG/20ML VIAL IV STA (14:46)
[2020-11-03 14:48] LABS: MAGNESIUM LEVEL 2.1 MG/DL (1.8-2.4); PHOSPHORUS LEVEL 3.3 MG/DL (2.5-4.9)
[2020-11-03 15:10] LABS: FOLATE > 24.0 NG/ML (>5.4); VITAMIN B12 LEVEL 472 PG/ML (247-911)
[2020-11-03 15:26] LABS: OSMOLALITY URINE 335 MOSM/KG (50-1400)
[2020-11-03] MEDS: LORazepam 2 MG/ML VIAL IV PRN ×2 (15:41→20:30)
[2020-11-03 15:50] LABS: CREATININE,RANDOM URINE 62.8 MG/DL; SODIUM,RANDOM URINE 15 MEQ/L; UREA NITROGEN RANDOM URINE 359 MG/DL
[2020-11-03] MEDS: METOPROLOL TARTRATE 100 MG TAB PO SCH ×2 (16:00→21:00)
--- NOTE | 2020-11-03 18:11 | REPVR ---
PROCEDURE INFORMATION: Exam: CT Head Without Contrast Exam date and time: 11/03/2020 5:24 PM Age: 60 years old Clinical indication: Altered mental status/memory loss; Confusion or disorientation TECHNIQUE: Imaging protocol: Computed tomography of the head without contrast. Radiation optimization: All CT scans at this facility use at least one of these dose optimization techniques: automated exposure control; mA and/or kV adjustment per patient size (includes targeted exams where dose is matched to clinical indication); or iterative reconstruction. COMPARISON: MRI-Spine,Cervical without con 10/10/2016 12:33 PM FINDINGS: Brain: The brain demonstrates diffuse volume loss, advanced for age. There is white matter hypodensity most consistent with chronic small vessel ischemic change. No visible evolving territorial infarct. No hemorrhage. Cerebral ventricles: No ventriculomegaly. Paranasal sinuses: Visualized sinuses are unremarkable. No fluid levels. Mastoid air cells: Visualized mastoid air cells are well aerated. Orbital cavity: The orbital contents are unremarkable. Bones/joints: No acute fracture seen. Soft tissues: Bilateral periorbital soft tissue swelling. Oropharynx: Postinfectious postinflammatory calcifications in the palatine tonsils. IMPRESSION: No acute intracranial abnormality seen. Electronically signed by: Lorena Gan On 11/03/2020 18:11:12 PM
[2020-11-03 19:24] LABS: BLOOD UREA NITROGEN 11 MG/DL (7-18); CALCIUM LEVEL 8.8 MG/DL (8.5-10.1); CARBON DIOXIDE LEVEL 25 MEQ/L (21-32); CHLORIDE LEVEL 97 MEQ/L (98-107); FREE T4 0.78 NG/DL (0.76-1.46); GLOMERULAR FILTRATION RATE > 60.0 (>56); GLUCOSE, FASTING 137 MG/DL (70-100); SODIUM LEVEL 131 MEQ/L (136-145)
[2020-11-03 19:27] LABS: TOTAL T3 74.2 NG/DL (60.0-181.0)
[2020-11-03 19:34] LABS: OSMOLALITY SERUM 268 MOSM/KG (275-295)
[2020-11-04] VITALS (20 sets, daily range): BP systolic 130–203; BP diastolic 76–126
[2020-11-04 00:32] LABS: BLOOD UREA NITROGEN 11 MG/DL (7-18); CALCIUM LEVEL 8.7 MG/DL (8.5-10.1); CARBON DIOXIDE LEVEL 27 MEQ/L (21-32); CHLORIDE LEVEL 98 MEQ/L (98-107); CREATININE FOR GFR 0.67 MG/DL (0.70-1.30); GLOMERULAR FILTRATION RATE > 60.0 (>56); GLUCOSE, FASTING 134 MG/DL (70-100); POTASSIUM SERUM 4.1 MEQ/L (3.5-5.1); SODIUM LEVEL 131 MEQ/L (136-145)
[2020-11-04] MEDS: diphenhydrAMINE 50MG/ML VIAL (J1200) IV SCH ×3 (02:50→16:32)
[2020-11-04] MEDS: methylPREDNISolone 125MG 2ML VIAL IV SCH ×4 (02:50→18:38)
[2020-11-04] MEDS: LORazepam 2 MG/ML VIAL IV PRN (03:05)
[2020-11-04] MEDS: oxyCODONE 5MG TAB PO PRN ×2 (03:05→07:18)
[2020-11-04 05:26] LABS: BASO % 0.1 % (0.0-1.0); HEMATOCRIT 34.4 % (42.0-52.0); HEMOGLOBIN 11.9 g/dl (13.5-17.5); LYMPH # 0.3 10^3/uL (1.5-5.0); LYMPH % 1.8 % (24.0-44.0); MEAN CORPUSCULAR HEMOGLOBIN 32.1 pg (27.0-33.0); MEAN CORPUSCULAR HGB CONC 34.6 g/dl (32.0-36.5); MEAN CORPUSCULAR VOLUME 92.7 fl (80.0-96.0); MONO # 1.2 10^3/uL (0.0-0.8); MONO % 8.9 % (2.0-8.0); NEUTROPHILS # 12.3 10^3/uL (1.5-8.5); NEUTROPHILS % 88.3 % (36.0-66.0); PLATELET COUNT, AUTOMATED 237 10^3/uL (150-450); RED BLOOD COUNT 3.71 10^6/uL (4.30-6.10)
[2020-11-04 05:47] LABS: BLOOD UREA NITROGEN 11 MG/DL (7-18); CALCIUM LEVEL 8.8 MG/DL (8.5-10.1); CARBON DIOXIDE LEVEL 24 MEQ/L (21-32); CHLORIDE LEVEL 100 MEQ/L (98-107); CREATININE FOR GFR 0.72 MG/DL (0.70-1.30); GLOMERULAR FILTRATION RATE > 60.0 (>56); GLUCOSE, FASTING 126 MG/DL (70-100); MAGNESIUM LEVEL 2.1 MG/DL (1.8-2.4); SODIUM LEVEL 134 MEQ/L (136-145)
[2020-11-04] MEDS ORDERED: LORazepam 2 MG/ML VIAL IV PRN (08:10)
[2020-11-04] MEDS: MULTIVITAMINS/MINERALS THERAP 1 TAB PO SCH (08:20)
[2020-11-04] MEDS: FAMOTIDINE IV BAG 20 MG in IV 1 EA IV SCH (08:20)
[2020-11-04] MEDS: METOPROLOL TARTRATE 100 MG TAB PO SCH (08:21)
[2020-11-04] MEDS: FOLIC ACID 1 MG TAB PO SCH (08:21)
[2020-11-04] MEDS: THIAMINE 100 MG TAB PO SCH ×2 (08:21→21:38)
[2020-11-04] MEDS: OXAZEPAM 10 MG CAP PO SCH ×3 (08:38→21:38)
[2020-11-04] MEDS ORDERED: **hydrALAZINE** 50 MG TAB PO SCH (09:00)
--- NOTE | 2020-11-04 09:56 | IPNPDOC ---
Text Note Date of Service The patient was seen on 11/04/20. NOTE Subjective: Patient is a 52-year-old male with a PMHx of HTN, Hx of Pancreatitis, OA / Arthritis, Hx of MRSA who presented to the hospital with facial swelling. As per patient, he initially reported that he's been experiencing swelling of his lips and groin for several years, occurring intermittently and has seen several providers in [place], [place] and [facility]. Patient had initially presented to [facility] on 11/02 for lip swelling and was given Benadryl plus some additional medications and was subsequently discharged home. Patient was seen by his friend later that day and brought him in to [facility] for further evaluation. Patient was admitted to the hospital service for further evaluation and treatment of his periorbital edema. Patient was seen and examined at the bedside. This morning patient is calm and able to answer questions appropriately. He denies any CP, SOB or palpitaitons. Reports he experiences some back pain. Denies any N/V, abdominal pain, C/D or urinary discomfort. Objective: Vitals (See below) General: Lying in bed, appears comfortable, AAOx3 HEENT: Area of periorbital swelling has had continued improvement CVS: +S1S2 Lungs: No evidence of wheezing, rales or rhonchi Abdomen: Soft, nondistended, nontender Extremities: No lower extremity edema, right upper extremity with corrected laceration sutures in place Imaging: CXR 11/02: No active disease. CT Head 11/04: No acute intracranial abnormality seen. Assessment and plan: s/p Acute metabolic encephalopathy - possibly 2/2 multifactorial etiology; withdrawal from alcohol and/or opiates - Patient reports that he drinks 4 beers daily; has also reported the use of oxycodone about 3-5 tablets at the start of every morning depending on pain - Patient is currently fully oriented - Imaging noted above - c/w [facility] protocol - c/w Oxycodone PRN based on outpatient regimen - Ammonia, B12, Folate, RPR - noted - MICHAEL pending Angioedema - Continues to have improvement of periorbital edema - c/w Solumedrol; will reduce dose - c/w Benadryl and Famotidine, will reduce dose / frequency - s/p C1 esterase inhibitor dose - Will avoid use of all JENIFER-inhibitors RUE with prior laceration corrected - Reported to have had correction at home with friend performing sutures - No signs of infection - Blood cultures pending - PCT negative - Will hold off on antibiotics at this time HTN - c/w Metoprolol tartrate 100 TID - s/p Amlodipine - Will avoid use of Enalapril / JENIFER-inhibitors Hyponatremia - likely 2/2 hypotonic - possibly 2/2 hypovolemic / euvolemic etiology - possibly 2/2 beer potomania - Improving gradually - Will DC IV fluid hydration Urinary retention - Will check bladder scans to determine amount of urine with bladder - Webber catheter was placed with >900 cc of urine output; but was pulled out overnight - Will c/w Bladder scans and re-insert if retention is noted again Alcohol abuse history - c/w Thiamine, Folate, MVI DVT prophylaxis - c/w TEDs/Sequentials Disposition: - Anticipate downgrade to PCU within 24 hours VS,Fishbone, I+O VS, Fishbone, I+O Laboratory Tests 11/03/20 12:06 11/03/20 18:19 11/03/20 23:53 11/04/20 05:05 Vital Signs Date Time Temp Pulse Resp B/P (MAP) Pulse Ox O2 Delivery O2 Flow Rate FiO2 11/04/20 08:21 100 177/107 11/04/20 08:00 98.0 18 96 Room Air I&O- Last 24 Hours up to 6 AM 11/04/20 06:00 Intake Total 730 ml Output Total 2325 ml Balance -1595 ml SOPHIE MESA MD Nov 04, 2020 09:56
[2020-11-04] MEDS ORDERED: LABETALOL 100MG/20ML VIAL IV STA (14:35)
[2020-11-04] MEDS: LABETALOL 200 MG TAB PO SCH ×2 (16:32→21:37)
[2020-11-04] MEDS ORDERED: methylPREDNISolone 40MG 1ML VIAL IV SCH (18:34)
[2020-11-05] VITALS: BP 144/103
[2020-11-05] MEDS: diphenhydrAMINE 50MG/ML VIAL (J1200) IV SCH (00:04)
[2020-11-05] MEDS: FAMOTIDINE IV BAG 20 MG in IV 1 EA IV SCH (00:04)
[2020-11-05] MEDS: oxyCODONE 5MG TAB PO PRN ×2 (00:15→05:40)
[2020-11-05] MEDS: methylPREDNISolone 125MG 2ML VIAL IV SCH (02:55)
[2020-11-05 04:00] VITALS: BP 157/109
[2020-11-05 05:39] LABS: BASO % 0.1 % (0.0-1.0); HEMATOCRIT 35.4 % (42.0-52.0); HEMOGLOBIN 12.6 g/dl (13.5-17.5); LYMPH # 0.5 10^3/uL (1.5-5.0); MEAN CORPUSCULAR HEMOGLOBIN 32.6 pg (27.0-33.0); MEAN CORPUSCULAR HGB CONC 35.6 g/dl (32.0-36.5); MEAN CORPUSCULAR VOLUME 91.5 fl (80.0-96.0); MONO % 8.7 % (2.0-8.0); NEUTROPHILS # 9.9 10^3/uL (1.5-8.5); NEUTROPHILS % 86.6 % (36.0-66.0); PLATELET COUNT, AUTOMATED 224 10^3/uL (150-450); RED BLOOD COUNT 3.87 10^6/uL (4.30-6.10); WHITE BLOOD COUNT 11.4 10^3/uL (4.0-10.0)
[2020-11-05] MEDS: OXAZEPAM 10 MG CAP PO SCH (05:40)
[2020-11-05 06:08] LABS: BLOOD UREA NITROGEN 11 MG/DL (7-18); CALCIUM LEVEL 8.9 MG/DL (8.5-10.1); CARBON DIOXIDE LEVEL 25 MEQ/L (21-32); CHLORIDE LEVEL 94 MEQ/L (98-107); CREATININE FOR GFR 0.66 MG/DL (0.70-1.30); GLOMERULAR FILTRATION RATE > 60.0 (>56); GLUCOSE, FASTING 127 MG/DL (70-100); MAGNESIUM LEVEL 2.2 MG/DL (1.8-2.4); POTASSIUM SERUM 3.6 MEQ/L (3.5-5.1); SODIUM LEVEL 130 MEQ/L (136-145)
[2020-11-05] MEDS ORDERED: AMLO1TAB25 PO (07:57)
[2020-11-05] MEDS ORDERED: PRED10TA2 PO (07:57)
[2020-11-05] MEDS ORDERED: LABE20TAB PO (07:57)
[2020-11-05 08:00] VITALS: BP 153/103
[2020-11-05] MEDS: MULTIVITAMINS/MINERALS THERAP 1 TAB PO SCH (08:02)
[2020-11-05] MEDS: THIAMINE 100 MG TAB PO SCH (08:02)
[2020-11-05] MEDS: FOLIC ACID 1 MG TAB PO SCH (08:02)
[2020-11-05 08:03] VITALS: BP 158/110
[2020-11-05] MEDS: LABETALOL 200 MG TAB PO SCH (08:03)
[2020-11-05 09:30] VITALS: BP 147/103
--- NOTE | 2020-11-05 09:52 | DS.PDOC ---
Discharge Summary General Date of Admission Nov 02, 2020 at 22:59 Date of Discharge 11/05/2020 Discharge Summary PROCEDURES PERFORMED DURING STAY: [None]. ADMITTING DIAGNOSES / DISCHARGE DIAGNOSES: s/p Acute metabolic encephalopathy - possibly 2/2 multifactorial etiology; withdrawal from alcohol and/or opiates s/p Angioedema RUE with prior laceration corrected HTN Hyponatremia - likely 2/2 hypotonic - possibly 2/2 hypovolemic / euvolemic etiology - possibly 2/2 beer potomania s/p Urinary retention Alcohol abuse history DVT prophylaxis COMPLICATIONS/CHIEF COMPLAINT: Facial swelling HISTORY OF PRESENT ILLNESS: Patient is a 52-year-old male with a PMHx of HTN, Hx of Pancreatitis, OA / Arthritis, Hx of MRSA who presented to the hospital with facial swelling. As per patient, he initially reported that he's been experiencing swelling of his lips and groin for several years, occurring intermittently and has seen several providers in [place], [place] and [facility]. Patient had initially presented to [facility] on 11/02 for lip swelling and was given Benadryl plus some additional medications and was subsequently discharged home. Patient was seen by his friend later that day and brought him in to [facility] for further evaluation. Patient was admitted to the hospital service for further evaluation and treatment of his periorbital edema. Patient was seen and examined at the bedside. Currently, he was sitting in chair, ambulating to the room. Had put on his hat and asking to leave ines. Patient denies any chest pain, shortness breath, palpitations, nausea, vomiting, abdominal pain, denies any urinary discomfort or difficulty with urination. Denies any diarrhea. HOSPITAL COURSE: s/p Acute metabolic encephalopathy - possibly 2/2 multifactorial etiology; withdrawal from alcohol and/or opiates - Patient reports that he drinks 4 beers daily; has also reported the use of oxycodone about 3-5 tablets at the start of every morning depending on pain - This morning patient is fully oriented to person, place and time, able to converse appropriately - Imaging noted above - c/w CIWA protocol; Will DC Serax - c/w Oxycodone PRN based on outpatient regimen - Ammonia, B12, Folate, RPR - noted - MICHAEL pending - Will have outpatient follow-up with primary care provider on discharge s/p Angioedema - Continues to have improvement of periorbital edema - s/p C1 esterase inhibitor dose - Will DC Benadryl and Famotidine - Will DC Solumedrol; will start Prednisone taper on discharge - Will avoid use of all JENIFER-inhibitors RUE with prior laceration corrected - Reported to have had correction at home with friend performing sutures - No signs of infection - Blood cultures pending - PCT negative - Will hold off on antibiotics at this time - Will have outpatient follow-up with primary care provider HTN - s/p Metoprolol tartrate - Will avoid use of Enalapril / JENIFER-inhibitors - c/w Labetalol and Amlodipine Hyponatremia - likely 2/2 hypotonic - possibly 2/2 hypovolemic / euvolemic etiology - possibly 2/2 beer potomania - Remains stable - Patient has been advised to abstain from alcohol - s/p IV fluid hydration s/p Urinary retention - Initially Webber catheter was placed with >900 cc of urine output; but was pulled out - Since that point, patient has not had any difficulty with urination Alcohol abuse history - c/w Thiamine, Folate, MVI DVT prophylaxis - c/w TEDs/Sequentials DISCHARGE MEDICATIONS: Please see below. ALLERGIES: Please see below. PHYSICAL EXAMINATION ON DISCHARGE: Vitals (See below) General: She was sitting up in a chair and then was ambulating in the room, appeared comfortable without any acute distress, is awake and alert, oriented 3 HEENT: Periorbital edema has essentially resolved CVS: +S1S2 Lungs: There was fair air entry bilaterally without evidence of wheezing, crackles or rhonchi Abdomen: Abdomen remains soft without any appreciated distention or tenderness Extremities: No lower extremity edema LABORATORY DATA: Please see below. IMAGING: CXR 11/02: No active disease. CT Head 11/04: No acute intracranial abnormality seen. ACTIVITY: [As tolerated]. DISCHARGE PLAN: Follow-up with primary care provider within the next 7 days Remain compliant with treatment plan and medications Return to the ER if you experience any problems DISPOSITION: Home DISCHARGE CONDITION: [Stable]. TIME SPENT ON DISCHARGE: 35 minutes. Vital Signs/I&Os Vital Signs Date Time Temp Pulse Resp B/P (MAP) Pulse Ox O2 Delivery O2 Flow Rate FiO2 11/05/20 08:03 105 158/108 11/05/20 08:00 97.6 17 98 Room Air I&O- Last 24 Hours up to 6 AM 11/05/20 05:59 Intake Total 980 ml Output Total 800 ml Balance 180 ml Laboratory Data Labs 24H Laboratory Tests 2 11/05/20 05:14: Immature Granulocyte % (Auto) 0.6, Neutrophils (%) (Auto) 86.6H, Lymphocytes (%) (Auto) 4.0L, Monocytes (%) (Auto) 8.7H, Eosinophils (%) (Auto) 0.0, Basophils (%) (Auto) 0.1, Neutrophils # (Auto) 9.9H, Lymphocytes # (Auto) 0.5L, Monocytes # (Auto) 1.0H, Eosinophils # (Auto) 0.0, Basophils # (Auto) 0.0, Nucleated Red Blood Cells % (auto) 0.0, Anion Gap 11, Glomerular Filtration Rate > 60.0, Calcium Level 8.9, Magnesium Level 2.2 CBC/BMP Laboratory Tests 11/05/20 05:14 Microbiology Microbiology 11/03/20 Blood Culture - Preliminary, Resulted No growth after 24 hours . All specim... 11/03/20 Blood Culture - Preliminary, Resulted No growth after 24 hours . All specim... Discharge Medications Scheduled Amlodipine Besylate (Amlodipine Besylate) 10 Mg Tablet, 10 MG PO DAILY Labetalol HCl (Labetalol HCl) 200 Mg Tablet, 100 MG PO TID Prednisone (Prednisone) 10 Mg Tablet, 10 MG PO TAPER Take 4 tabs daily x 3 days, then 3 tabs daily x 3 days, then 2 tabs daily x 3 days, then 1 tab daily x 3 days and stop Scheduled PRN Cyclobenzaprine HCl (Cyclobenzaprine HCl) 10 Mg Tablet, 10 MG PO TID PRN for MUSCLE SPASMS, (Reported) Oxycodone HCl (Oxycodone HCl) 5 Mg Tablet, 5 MG PO Q4H PRN for PAIN LEVEL 6-10, (Reported) Allergies Coded Allergies: JENIFER Inhibitors (Verified Allergy, Severe, ANGIOEDEMA, 11/03/20) Peanut (Verified Allergy, Severe, airway issues, 09/19/19) gabapentin (Verified Allergy, Severe, " almost killed him ", 10/14/19) SOPHIE MESA MD Nov 05, 2020 09:52
[2020-11-05 18:12] LABS: Lyme Disease IgG/IgM Antibodie <0.91 ISR (0.00-0.90); Lyme Disease IgM Ab Quantitati <0.80 index (0.00-0.79)
[2020-11-05 23:07] LABS: ANA (HEP2) Negative (.); ANTINUCLEAR ANTIBODIES DIRECT Negative (Negative)
[2020-11-07 23:06] LABS: C1 ESTER INHIB. NON FUNCTIONAL 44 mg/dL (21-39); C1 ESTERASE INHIB. FUNCTIONAL > 91 (.); COAGULATION FACTOR XII ACTIVIT 92 % (50-150); TRYPTASE 4.8 ug/L (2.2-13.2)
== END 2020-11-05 10:09 | disposition home or self-care (01) | DRG 811 ==
LOC: M ED 19:13 → M ED INP 22:59 → M ICU 11-03 02:50 → M PCU 11-04 19:35
PROVIDERS: ADMIT Internal Medicine; ATTEND Internal Medicine
DX: T78.3XXA Angioneurotic edema, initial encounter (principal); G93.41 Metabolic encephalopathy; E87.1 Hypo-osmolality and hyponatremia; I10 Essential (primary) hypertension; R74.01 Elevation of levels of liver transaminase levels; R33.9 Retention of urine, unspecified; F11.13 Opioid abuse with withdrawal; F10.139 Alcohol abuse with withdrawal, unspecified; Z79.899 Other long term (current) drug therapy; Z88.8 Allergy status to other drugs, medicaments and biological substances; Z91.010 Allergy to peanuts; Z86.14 Personal history of Methicillin resistant Staphylococcus aureus infection; Z90.5 Acquired absence of kidney; Z79.891 Long term (current) use of opiate analgesic

== ENCOUNTER 2021-10-05 21:27 | Observation (INO) | payer MEDICAID, OTHER, SELFPAY ==
[~2021-10-05] VITALS: Ht 182.9 cm; Wt 74.7 kg
[~2021-10-05 21:27] MED LIST changes: +AMLO1TAB25 PO; +LABE20TAB PO; -OMEP-221 PO; +OMEP40CA5 PO; +PRED10TA2 PO
[2021-10-06] MEDS ORDERED: NITROGLYCERIN 2% OINT 1 GM *U/D* PKT TOP ONE (00:30)
[2021-10-06] MEDS ORDERED: ACETAMINOPHEN TAB 650MG DOSE (2X325MG) PO ONE (00:30)
[2021-10-06 00:33] LABS: BASO # 0.1 10^3/uL (0.0-0.2); EOS # 0.3 10^3/uL (0.0-0.5); EOS % 2.3 % (0.0-3.0); HEMATOCRIT 32.9 % (42.0-52.0); HEMOGLOBIN 11.3 g/dl (13.5-17.5); LYMPH # 1.4 10^3/uL (1.5-5.0); LYMPH % 12.6 % (24.0-44.0); MEAN CORPUSCULAR HEMOGLOBIN 33.3 pg (27.0-33.0); MEAN CORPUSCULAR HGB CONC 34.3 g/dl (32.0-36.5); MEAN CORPUSCULAR VOLUME 97.1 fl (80.0-96.0); MONO % 15.9 % (2.0-8.0); NEUTROPHILS # 7.3 10^3/uL (1.5-8.5); NEUTROPHILS % 67.7 % (36.0-66.0); PLATELET COUNT, AUTOMATED 239 10^3/uL (150-450); RED BLOOD COUNT 3.39 10^6/uL (4.30-6.10); WHITE BLOOD COUNT 10.7 10^3/uL (4.0-10.0)
[2021-10-06 00:43] LABS: APPEARANCE, URINE CLEAR (CLEAR); BACTERIA, URINE AUTO NEGATIVE (NEGATIVE); BILIRUBIN, URINE AUTO NEGATIVE (NEGATIVE); BLOOD, URINE BLOOD NEGATIVE (NEGATIVE); COLOR, URINE COLORLESS (YELLOW); GLUCOSE, URINE (UA) AUTO NEGATIVE (NEGATIVE); KETONE, URINE AUTO NEGATIVE (NEGATIVE); LEUKOCYTE ESTERASE, URINE AUTO NEGATIVE (NEGATIVE); NITRITE, URINE AUTO NEGATIVE (NEGATIVE); PROTEIN, URINE AUTO NEGATIVE (NEGATIVE); RBC, URINE AUTO 0 /HPF (0-3); SPECIFIC GRAVITY URINE AUTO 1.002 (1.002-1.035); SQUAMOUS EPITHELIAL CELL UR AU 0 /HPF (0-6); UROBILINOGEN, URINE AUTO 0.2 mg/dL (0.0-2.0); WBC, URINE AUTO 0 /HPF (0-3)
[2021-10-06 00:44] LABS: INR 0.94
[2021-10-06 00:45] LABS: PARTIAL THROMBOPLASTIN TIME 33.2 SECONDS (25.9-37.0)
[2021-10-06] MEDS: MORPHINE 2 MG/ML 1ML VIAL IV PRN ×2 (00:50→01:27)
[2021-10-06 01:02] LABS: MB/CK RELATIVE INDEX 1.67 (< OR =4)
[2021-10-06 01:10] LABS: ALBUMIN 2.8 GM/DL (3.2-5.2); ALT/SGPT 25 U/L (12-78); BILIRUBIN,DIRECT 0.3 MG/DL (0.0-0.2); BILIRUBIN,TOTAL 0.3 MG/DL (0.2-1.0); BLOOD UREA NITROGEN 6 MG/DL (7-18); CALCIUM LEVEL 7.6 MG/DL (8.5-10.1); CARBON DIOXIDE LEVEL 26 MEQ/L (21-32); CHLORIDE LEVEL 100 MEQ/L (98-107); CREATININE FOR GFR 0.84 MG/DL (0.70-1.30); ETHYL ALCOHOL (ETHANOL) < 0.003 % (0.000-0.010); GLOMERULAR FILTRATION RATE > 60.0 (>56); GLUCOSE, FASTING 103 MG/DL (70-100); NT-PRO BNP 3519 PG/ML (<125); SODIUM LEVEL 132 MEQ/L (136-145)
[2021-10-06 01:15] LABS: AMPHETAMINES LEVEL URINE NEGATIVE (NEGATIVE); BARBITURATES URINE NEGATIVE (NEGATIVE); BENZODIAZEPINES URINE NEGATIVE (NEGATIVE); CANNABINOIDS URINE POSITIVE (NEGATIVE); COCAINE METABOLITE URINE NEGATIVE (NEGATIVE); METHADONE URINE NEGATIVE (NEGATIVE); OPIATES URINE NEGATIVE (NEGATIVE); PHENCYCLIDINE URINE NEGATIVE (NEGATIVE)
[2021-10-06 01:42] LABS: MONO # 1.7 10^3/uL (0.0-0.8)
[2021-10-06 02:05] LABS: CK-MB VALUE MASS < 1.0 NG/ML (<3.6); CPK CREATINE PHOSPHOKINASE 57 U/L (39-308); MB/CK RELATIVE INDEX 1.75 (< OR =4)
[2021-10-06] MEDS ORDERED: ISOVUE-370 76% 100ML VIAL As Ordered ONE (03:35)
[2021-10-06] MEDS ORDERED: HYDROMORPHONE HCL 0.5 MG/ 0.5 ML SYRINGE (J1170 PER 1) IV PRN (03:55)
[2021-10-06] MEDS ORDERED: METO100T5 PO (04:28)
[2021-10-06] MEDS ORDERED: HOME MED LIST COMPLETE! XX SCH (04:30)
[2021-10-06] MEDS ORDERED: ACETAMINOPHEN TAB 650MG DOSE (2X325MG) PO PRN (05:00)
[2021-10-06 05:15] VITALS: BP 150/62
[2021-10-06] MEDS ORDERED: FUROSEMIDE 100MG/10ML VIAL (J1940) IV ONE (06:00)
[2021-10-06 06:35] LABS: FERRITIN 154 NG/ML (26-388); IRON (FE) 17 UG/DL (65-175); PERCENT SATURATION 5.2 % (19.7-50.0); TOTAL IRON BINDING CAPACITY 328 UG/DL (250-450)
[2021-10-06] MEDS ORDERED: traMADol 50 MG TAB PO PRN (08:55)
[2021-10-06] MEDS ORDERED: PERCOCET 5MG/325MG TAB PO PRN (09:10)
[2021-10-06] MEDS ORDERED: AMLO1TAB24 PO (11:37)
[2021-10-06] MEDS ORDERED: PRED5TA PO (11:37)
[2021-10-06] MEDS ORDERED: PERCOCET PO (11:37)
== END 2021-10-06 12:51 | disposition home or self-care (01) ==
LOC: M ED 21:27 → M ED INP 21:28 → M MSPAV 10-06 05:11
PROVIDERS: ADMIT Internal Medicine; ATTEND Internal Medicine
DX: R07.9 Chest pain, unspecified (principal); M54.2 Cervicalgia; I10 Essential (primary) hypertension; R04.2 Hemoptysis; Z79.52 Long term (current) use of systemic steroids; Z79.899 Other long term (current) drug therapy; Z91.010 Allergy to peanuts; Z88.5 Allergy status to narcotic agent
CPT/HCPCS: 36415; 71045; 71275; 80048; 80076; 80307; 81001; 82077; 82550; 82553; 82728; 83550; 83605; 83880; 84145; 84443; 85025; 85610; 85652; 85730; 86140; 87040; 87077; 87486; 87581; 87633; 87798; 93005; 93041; 94760; 96374; 96375; 96376; 99285; J1170; J2270; Q9967

== ENCOUNTER → 2022-03-23 | Outpatient (CLI) | payer OTHER ==
[~2022-03-23] MED LIST changes: +AMLO1TAB24 PO; +METO100T5 PO; +PRED5TA PO
== END ==
LOC: M RAD 08:21
PROVIDERS: ATTEND Internal Medicine Pulmonary Disease
DX: R06.02 Shortness of breath (principal); R91.8 Other nonspecific abnormal finding of lung field

== ENCOUNTER → 2022-07-20 | Outpatient (REF) ==
[~2022-07-20] MED LIST changes: -ENAL-36 PO; +ENAL1TAB50 PO
== END ==
LOC: M PLAIMG 08:07
PROVIDERS: ATTEND Internal Medicine
DX: Z00.00 Encounter for general adult medical examination without abnormal findings (principal)

== ENCOUNTER 2024-01-06 05:28 | Emergency (ER) | payer OTHER ==
[~2024-01-06] VITALS: Ht 182.9 cm; Wt 72.7 kg
[~2024-01-06 05:28] MED LIST changes: +DICY-61 PO; -DICY10CA13 PO; +ENAL1TAB52 PO; -ENAL20TA11 PO; -HYDR-3910 PO; -HYDR25TA PO; +HYDR25TA87 PO; +HYDR25TA88 PO; +ONDA-282 PO; -ONDA4TAB6 PO
[2024-01-06 08:36] LABS: BASO # 0.1 10^3/uL (0.0-0.2); BASO % 0.9 % (0.0-1.0); EOS % 0.5 % (0.0-3.0); HEMATOCRIT 36.8 % (42.0-52.0); HEMOGLOBIN 12.7 g/dl (13.5-17.5); LYMPH # 1.3 10^3/uL (1.5-5.0); LYMPH % 17.2 % (24.0-44.0); MEAN CORPUSCULAR HGB CONC 34.5 g/dl (32.0-36.5); MEAN CORPUSCULAR VOLUME 92.7 fl (80.0-96.0); MONO # 0.5 10^3/uL (0.0-0.8); MONO % 6.7 % (2.0-8.0); NEUTROPHILS # 5.6 10^3/uL (1.5-8.5); NEUTROPHILS % 74.3 % (36.0-66.0); PLATELET COUNT, AUTOMATED 296 10^3/uL (150-450); RED BLOOD COUNT 3.97 10^6/uL (4.30-6.10); WHITE BLOOD COUNT 7.5 10^3/uL (4.0-10.0)
[2024-01-06 08:59] LABS: LIPASE 58 U/L (12-53)
[2024-01-06 09:00] LABS: CPK CREATINE PHOSPHOKINASE 257 U/L (46-171)
[2024-01-06 09:01] LABS: ALKALINE PHOSPHATASE 88 U/L (46-116); ALT/SGPT 84 U/L (7.0-40); AST/SGOT 113 U/L (<34); BILIRUBIN,TOTAL 0.5 MG/DL (0.3-1.2); BLOOD UREA NITROGEN 8 MG/DL (9-23); CALCIUM LEVEL 8.6 MG/DL (8.3-10.6); CARBON DIOXIDE LEVEL 26 MMOL/L (20-31); CHLORIDE LEVEL 103 MMOL/L (98-107); CREATININE FOR GFR 0.73 MG/DL (0.70-1.30); GLOMERULAR FILTRATION RATE > 60.0 (>49); GLUCOSE, FASTING 75 MG/DL (74-106); POTASSIUM SERUM 4.4 MMOL/L (3.5-5.1); SODIUM LEVEL 137 MMOL/L (136-145); TOTAL PROTEIN 6.8 G/DL (5.7-8.2)
[2024-01-06] MEDS: ACETAMINOPHEN *IV* 1,000 MG in IV 1 EA IV ONE (09:01)
[2024-01-06 09:04] LABS: CK-MB VALUE MASS 1.8 NG/ML (<3.6)
[2024-01-06] MEDS: NS 1,000 ML IV ONE (09:23)
[2024-01-06] MEDS: DICYCLOMINE 10 MG CAP PO ONE (09:53)
[2024-01-06] MEDS: PROMETHAZINE 25MG/ML 1ML VIAL IV ONE (09:53)
[2024-01-06] MEDS: MORPHINE 4 MG/ML 1ML VIAL IV ONE (10:56)
[2024-01-06] MEDS ORDERED: DICY-61 PO (11:20)
[2024-01-06 11:28] VITALS: BP 156/90; TEMP 97.3; O2SAT 100
== END 2024-01-06 11:52 | disposition home or self-care (01) ==
LOC: M ED 05:28
DX: R10.9 Unspecified abdominal pain (principal); R07.89 Other chest pain; I10 Essential (primary) hypertension; E78.5 Hyperlipidemia, unspecified; F41.9 Anxiety disorder, unspecified; K21.9 Gastro-esophageal reflux disease without esophagitis; K42.9 Umbilical hernia without obstruction or gangrene; I71.23 Aneurysm of the descending thoracic aorta, without rupture; Z79.899 Other long term (current) drug therapy; Z88.8 Allergy status to other drugs, medicaments and biological substances; Z91.010 Allergy to peanuts
CPT/HCPCS: 71045; 80053; 82550; 82553; 83690; 84484; 85025; 93005; 96365; 96375; 99284; J0131; J2550

== ENCOUNTER 2024-01-07 22:25 | Emergency (ER) | payer OTHER ==
[~2024-01-07] VITALS: Ht 177.8 cm; Wt 72.7 kg
[2024-01-07 22:40] VITALS: BP 136/85; TEMP 96.8; O2SAT 92
[2024-01-07] MEDS: NS 500 ML IV ONE (23:50)
[2024-01-08 01:05] LABS: BASO # 0.1 10^3/uL (0.0-0.2); BASO % 1.1 % (0.0-1.0); EOS % 0.5 % (0.0-3.0); HEMATOCRIT 37.4 % (42.0-52.0); HEMOGLOBIN 13.2 g/dl (13.5-17.5); LYMPH # 1.7 10^3/uL (1.5-5.0); LYMPH % 26.3 % (24.0-44.0); MEAN CORPUSCULAR HEMOGLOBIN 32.7 pg (27.0-33.0); MEAN CORPUSCULAR HGB CONC 35.3 g/dl (32.0-36.5); MEAN CORPUSCULAR VOLUME 92.6 fl (80.0-96.0); MONO # 0.6 10^3/uL (0.0-0.8); MONO % 8.5 % (2.0-8.0); NEUTROPHILS # 4.2 10^3/uL (1.5-8.5); NEUTROPHILS % 63.4 % (36.0-66.0); PLATELET COUNT, AUTOMATED 298 10^3/uL (150-450); RED BLOOD COUNT 4.04 10^6/uL (4.30-6.10); WHITE BLOOD COUNT 6.6 10^3/uL (4.0-10.0)
[2024-01-08] MEDS: ACETAMINOPHEN *IV* 1,000 MG in IV 1 EA IV ONE (01:22)
[2024-01-08 01:25] LABS: BLOOD UREA NITROGEN 6 MG/DL (9-23); CARBON DIOXIDE LEVEL 28 MMOL/L (20-31); CHLORIDE LEVEL 107 MMOL/L (98-107); CREATININE FOR GFR 0.76 MG/DL (0.70-1.30); GLOMERULAR FILTRATION RATE > 60.0 (>49); GLUCOSE, FASTING 85 MG/DL (74-106); POTASSIUM SERUM 3.8 MMOL/L (3.5-5.1); SODIUM LEVEL 141 MMOL/L (136-145)
[2024-01-08 01:28] LABS: THYROID STIMULATING HORMONE 3.424 uIU/ML (0.55-4.78)
[2024-01-08 03:11] VITALS: O2SAT 97
== END 2024-01-08 03:00 | disposition left against medical advice (07) ==
LOC: EDBD 22:25 → M ED 22:25
DX: S00.81XA Abrasion of other part of head, initial encounter (principal); S00.83XA Contusion of other part of head, initial encounter; S03.03XA Dislocation of jaw, bilateral, initial encounter; R55 Syncope and collapse; F10.129 Alcohol abuse with intoxication, unspecified; M47.892 Other spondylosis, cervical region; W18.30XA Fall on same level, unspecified, initial encounter; Y92.410 Unspecified street and highway as the place of occurrence of the external cause; Y93.K1 Activity, walking an animal; Y99.9 Unspecified external cause status; Z53.9 Procedure and treatment not carried out, unspecified reason; Z79.899 Other long term (current) drug therapy; Z88.8 Allergy status to other drugs, medicaments and biological substances; Z91.018 Allergy to other foods
CPT/HCPCS: 70450; 70486; 72125; 80048; 82077; 83605; 84443; 85025; 93041; 94760; 96361; 96365; 96366; 99284; J0131

== ENCOUNTER 2024-01-15 20:29 | Emergency (ER) | payer OTHER ==
[~2024-01-15] VITALS: Ht 188 cm; Wt 69.1 kg
[2024-01-16] MEDS: NS 1,000 ML IV ONE (07:13)
[2024-01-16] MEDS: MORPHINE 2 MG/ML 1ML VIAL IV ONE ×2 (07:15→08:31)
[2024-01-16 07:29] LABS: BASO # 0.1 10^3/uL (0.0-0.2); BASO % 1.1 % (0.0-1.0); EOS # 0.1 10^3/uL (0.0-0.5); EOS % 2.4 % (0.0-3.0); HEMOGLOBIN 11.9 g/dl (13.5-17.5); LYMPH # 0.9 10^3/uL (1.5-5.0); LYMPH % 19.7 % (24.0-44.0); MEAN CORPUSCULAR HEMOGLOBIN 32.2 pg (27.0-33.0); MEAN CORPUSCULAR VOLUME 94.9 fl (80.0-96.0); MONO # 0.6 10^3/uL (0.0-0.8); MONO % 13.7 % (2.0-8.0); NEUTROPHILS # 2.9 10^3/uL (1.5-8.5); NEUTROPHILS % 62.7 % (36.0-66.0); PLATELET COUNT, AUTOMATED 278 10^3/uL (150-450); RED BLOOD COUNT 3.69 10^6/uL (4.30-6.10); WHITE BLOOD COUNT 4.6 10^3/uL (4.0-10.0)
[2024-01-16 07:41] LABS: ETHYL ALCOHOL (ETHANOL) < 0.003 % (0.000-0.010); LIPASE 53 U/L (12-53)
[2024-01-16 07:43] LABS: ALBUMIN 3.6 G/DL (3.2-5.2); ALKALINE PHOSPHATASE 107 U/L (46-116); ALT/SGPT 83 U/L (7.0-40); AST/SGOT 85 U/L (<34); BILIRUBIN,DIRECT 0.2 MG/DL (<0.4); BILIRUBIN,TOTAL 0.7 MG/DL (0.3-1.2); BLOOD UREA NITROGEN 6 MG/DL (9-23); CALCIUM LEVEL 8.7 MG/DL (8.3-10.6); CARBON DIOXIDE LEVEL 25 MMOL/L (20-31); CHLORIDE LEVEL 101 MMOL/L (98-107); CREATININE FOR GFR 0.73 MG/DL (0.70-1.30); GLOMERULAR FILTRATION RATE > 60.0 (>49); GLUCOSE, FASTING 71 MG/DL (74-106); POTASSIUM SERUM 3.9 MMOL/L (3.5-5.1); SODIUM LEVEL 132 MMOL/L (136-145); TOTAL PROTEIN 6.7 G/DL (5.7-8.2)
[2024-01-16 08:34] VITALS: BP 162/99; TEMP 98.2; O2SAT 98
== END 2024-01-16 09:23 | disposition home or self-care (01) ==
LOC: EDBD 20:29 → M ED 20:29
DX: R10.9 Unspecified abdominal pain (principal); E16.2 Hypoglycemia, unspecified; G58.0 Intercostal neuropathy; I25.2 Old myocardial infarction; I10 Essential (primary) hypertension; F41.9 Anxiety disorder, unspecified; F10.10 Alcohol abuse, uncomplicated; Z86.79 Personal history of other diseases of the circulatory system; Z88.6 Allergy status to analgesic agent; Z88.8 Allergy status to other drugs, medicaments and biological substances; Z91.010 Allergy to peanuts; Z79.899 Other long term (current) drug therapy; Z79.52 Long term (current) use of systemic steroids
CPT/HCPCS: 80048; 80076; 82077; 83605; 83690; 85025; 96361; 96374; 96375; 96376; 99284; J1100